=== PATIENT | female | born 1970 | race Caucasian/White ===

== ENCOUNTER → 2023-05-24 | Outpatient (CLI) | payer OTHER ==
[2023-05-24 15:51] LABS: BASO # 0.1 10^3/uL (0.0-0.2); BASO % 0.8 % (0.0-1.0); EOS # 0.4 10^3/uL (0.0-0.5); EOS % 2.9 % (0.0-3.0); HEMATOCRIT 43.1 % (36.0-47.0); HEMOGLOBIN 14.4 g/dl (12.0-15.5); LYMPH % 33.8 % (24.0-44.0); MEAN CORPUSCULAR HEMOGLOBIN 30.1 pg (27.0-33.0); MEAN CORPUSCULAR HGB CONC 33.4 g/dl (32.0-36.5); MONO % 8.5 % (2.0-8.0); NEUTROPHILS # 6.4 10^3/uL (1.5-8.5); NEUTROPHILS % 53.7 % (36.0-66.0); PLATELET COUNT, AUTOMATED 334 10^3/uL (150-450); RED BLOOD COUNT 4.79 10^6/uL (4.00-5.40); WHITE BLOOD COUNT 11.9 10^3/uL (4.0-10.0)
[2023-05-24 16:03] LABS: PROTHROMBIN TIME 13.4 SECONDS (12.5-14.5)
== END ==
LOC: M PLALAB 13:04
PROVIDERS: ATTEND Internal Medicine Critical Care Medicine
DX: R91.8 Other nonspecific abnormal finding of lung field (principal)

== ENCOUNTER → 2023-06-10 | Outpatient (CLI) | payer OTHER ==
[~2023-06-10] MED LIST: ALLE180T33 PO; ASPI81TA26 PO; BUPR300T92 PO; ESTETAB PO; GABA-282 PO; METF500T13 PO; METO25TA4 PO; NORE0.353 PO; OMEP40CA4 PO; TRAZ-252 PO
== END ==
LOC: M RAD 10:07
PROVIDERS: ATTEND Internal Medicine Critical Care Medicine
DX: R91.8 Other nonspecific abnormal finding of lung field (principal)

== ENCOUNTER 2023-06-15 07:08 | Day surgery (SDC) | payer OTHER ==
[~2023-06-15] VITALS: Ht 157.5 cm; Wt 78.0 kg
[~2023-06-15 07:08] MED LIST changes: +ALBUTEROL SULFATE 2.5MG/0.5ML INH NEB SOLN INH ONE; +LIDOCAINE PRES-FREE 2% 10ML AMP INH ONE
[2023-06-15] MEDS ORDERED: LR 1,000 ML IV SCH ×2 (07:20→12:15)
[2023-06-15] MEDS ORDERED: ONDANSETRON 4MG 2ML VIAL As Ordered ONE (08:58)
[2023-06-15] MEDS ORDERED: propofoL 200 MG/20 ML VIAL As Ordered ONE (08:58)
[2023-06-15] MEDS ORDERED: ROCURONIUM BROMIDE 50MG/5ML VIAL As Ordered ONE (08:58)
[2023-06-15] MEDS ORDERED: LIDOCAINE 2% 100MG/5ML SDV (FOR ANES.) As Ordered ONE (08:58)
[2023-06-15] MEDS ORDERED: MIDAZOLAM INJ 2MG/2ML VIAL As Ordered ONE (08:58)
[2023-06-15] MEDS ORDERED: fentaNYL 100 MCG/2 ML INJECTION As Ordered ONE (08:59)
[2023-06-15] MEDS ORDERED: CETACAINE SPRAY 5GM As Ordered ONE (09:42)
[2023-06-15] MEDS ORDERED: THROMBIN 5,000 UNITS VIAL As Ordered ONE (09:42)
[2023-06-15] MEDS ORDERED: EPINEPHrine 1MG/10ML SYRINGE 1.5IN As Ordered ONE (09:43)
[2023-06-15] MEDS ORDERED: SUGAMMADEX SODIUM 500 MG/5 ML VIAL (BRIDION) As Ordered ONE (11:07)
[2023-06-15] MEDS ORDERED: ACETAMINOPHEN 1000MG 100ML IV BAG As Ordered ONE (11:07)
[2023-06-15] MEDS ORDERED: ePHEDrine SULFATE 25 MG/5 ML(5MG/ML) SYRINGE As Ordered ONE (11:19)
[2023-06-15] MEDS ORDERED: fentaNYL 100 MCG/2 ML INJECTION IV PRN (12:15)
[2023-06-15] MEDS ORDERED: ONDANSETRON 4MG 2ML VIAL IV PRN (12:15)
[2023-06-15 14:00] VITALS: TEMP 98; O2SAT 95
[2023-06-15 14:30] VITALS: BP 115/74
[2023-06-28] MEDS ORDERED: ALBU8.5H INH (14:58)
== END 2023-06-15 14:37 | disposition home or self-care (01) ==
LOC: M SDC 07:08
PROVIDERS: ATTEND Internal Medicine Critical Care Medicine
DX: C77.1 Secondary and unspecified malignant neoplasm of intrathoracic lymph nodes (principal); J44.9 Chronic obstructive pulmonary disease, unspecified; J84.10 Pulmonary fibrosis, unspecified; F17.218 Nicotine dependence, cigarettes, with other nicotine-induced disorders; Z79.82 Long term (current) use of aspirin; Z79.890 Hormone replacement therapy; Z79.891 Long term (current) use of opiate analgesic; Z79.899 Other long term (current) drug therapy
CPT/HCPCS: 31627; 31628; 31654; 71045; 76000; 87070; 87102; 87116; 87205; 87206; 88173; 88305; 93005; J0131; J0171; J1100; J2250; J2405; J3010

== ENCOUNTER → 2023-07-05 | Outpatient (CLI) | payer OTHER ==
[~2023-07-05] MED LIST changes: +ALBU8.5H INH; -ALBUTEROL SULFATE 2.5MG/0.5ML INH NEB SOLN INH ONE; -LIDOCAINE PRES-FREE 2% 10ML AMP INH ONE
== END ==
LOC: M ONCR 10:52
PROVIDERS: ATTEND General Practice
DX: C34.11 Malignant neoplasm of upper lobe, right bronchus or lung (principal); R92.8 Other abnormal and inconclusive findings on diagnostic imaging of breast; Z71.2 Person consulting for explanation of examination or test findings; Z79.82 Long term (current) use of aspirin; Z79.84 Long term (current) use of oral hypoglycemic drugs; Z79.899 Other long term (current) drug therapy; Z80.3 Family history of malignant neoplasm of breast; Z87.891 Personal history of nicotine dependence

== ENCOUNTER 2023-07-18 08:05 | Observation (INO) | payer OTHER ==
[~2023-07-18] VITALS: Ht 160 cm; Wt 79.6 kg
[~2023-07-18 08:05] MED LIST changes: -ACET1TAB55 PO; -LIDO30CR18 TOP; -LIDOCAINE W/EPINEPHRINE 1% 20ML VIAL As Ordered ONE; +LIDOCAINE W/EPINEPHRINE 1% 20ML VIAL ONE; -METO1TAB87 PO; -MIDAZOLAM INJ 2MG/2ML VIAL As Ordered ONE; +MIDAZOLAM INJ 2MG/2ML VIAL ONE; -NS 1,000 ML IV SCH; -ONDA-84 PO; -PROC10TA5 PO; -ceFAZolin 2 GM/D5W 50 ML IV BAG As Ordered ONE; -ceFAZolin SOD 2 GM in IV 1 EA IV ONE; -fentaNYL 100 MCG/2 ML INJECTION As Ordered ONE; +fentaNYL 100 MCG/2 ML INJECTION ONE
[2023-07-18] MEDS ORDERED: ADENOSINE 6MG 2ML INJECTION IV STA ×2 (08:22)
[2023-07-18 09:20] LABS: BASO # 0.1 10^3/uL (0.0-0.2); BASO % 0.8 % (0.0-1.0); EOS # 0.4 10^3/uL (0.0-0.5); EOS % 3.9 % (0.0-3.0); HEMATOCRIT 42.2 % (36.0-47.0); LYMPH # 3.6 10^3/uL (1.5-5.0); LYMPH % 34.6 % (24.0-44.0); MEAN CORPUSCULAR HEMOGLOBIN 29.7 pg (27.0-33.0); MEAN CORPUSCULAR HGB CONC 33.2 g/dl (32.0-36.5); MEAN CORPUSCULAR VOLUME 89.4 fl (80.0-96.0); MONO # 0.7 10^3/uL (0.0-0.8); MONO % 6.4 % (2.0-8.0); NEUTROPHILS # 5.6 10^3/uL (1.5-8.5); NEUTROPHILS % 54.1 % (36.0-66.0); PLATELET COUNT, AUTOMATED 331 10^3/uL (150-450); RED BLOOD COUNT 4.72 10^6/uL (4.00-5.40); WHITE BLOOD COUNT 10.4 10^3/uL (4.0-10.0)
[2023-07-18 09:21] LABS: BLOOD UREA NITROGEN 18 MG/DL (9-23); CALCIUM LEVEL 8.9 MG/DL (8.5-10.1); CARBON DIOXIDE LEVEL 22 MMOL/L (20-31); CHLORIDE LEVEL 106 MMOL/L (98-107); CREATININE FOR GFR 0.75 MG/DL (0.55-1.30); GLOMERULAR FILTRATION RATE > 60.0 (>51); GLUCOSE, FASTING 111 MG/DL (60-100); MAGNESIUM LEVEL 1.3 MG/DL (1.8-2.4); SODIUM LEVEL 136 MMOL/L (136-145)
[2023-07-18 09:23] LABS: THYROID STIMULATING HORMONE 1.888 uIU/ML (0.55-4.78)
[2023-07-18] MEDS ORDERED: MAG SULF 1GM/100ML (MAG RUN) 1 GM in IV 1 EA IV ONE ×3 (09:50→15:00)
[2023-07-18] MEDS ORDERED: MOM 30ML SUSPENSION UDC PO PRN (11:50)
[2023-07-18] MEDS ORDERED: MED REC IN PROGRESS XX SCH (11:50)
[2023-07-18] MEDS ORDERED: ACET1TAB55 PO (12:47)
[2023-07-18] MEDS ORDERED: HOME MED LIST COMPLETE! XX SCH (12:50)
[2023-07-18] MEDS ORDERED: MAG SULF 1GM/100ML (MAG RUN) 1 GM in IV 1 EA IV SCH ×2 (13:00→13:50)
[2023-07-18] MEDS ORDERED: LR 1,000 ML IV ONE (15:15)
[2023-07-18] MEDS ORDERED: PROHANCE 279.3MG/ML 15ML VIAL As Ordered ONE (15:59)
[2023-07-18 16:49] VITALS: BP 101/67; TEMP 97.7; O2SAT 97
[2023-07-18 17:47] VITALS: BP 101/71
[2023-07-18 19:47] VITALS: BP 99/62; TEMP 97.4; O2SAT 96
[2023-07-18] MEDS ORDERED: ACETAMINOPHEN TAB 650MG DOSE (2X325MG) PO PRN (20:10)
[2023-07-18] MEDS ORDERED: ALBUTEROL 90 MCG/ACT 8GM HFA INHALER INH PRN (20:10)
[2023-07-18] MEDS ORDERED: FEXOFENADINE 60MG TAB PO PRN (20:10)
[2023-07-18] MEDS: GABAPENTIN 300 MG CAP PO SCH (20:16)
[2023-07-18] MEDS: ACETAMINOPHEN TAB 650MG DOSE (2X325MG) PO PRN (20:17)
[2023-07-18] MEDS: METOPROLOL TART 25 MG TABLET PO SCH (21:00)
[2023-07-18] MEDS ORDERED: traZODone 50 MG TAB PO SCH (21:00)
[2023-07-18 23:45] VITALS: BP 97/62; TEMP 96.9; O2SAT 95
[2023-07-19 03:28] VITALS: BP 110/76; TEMP 97.8; O2SAT 100
[2023-07-19 06:33] LABS: HEMATOCRIT 40.1 % (36.0-47.0); HEMOGLOBIN 12.8 g/dl (12.0-15.5); MEAN CORPUSCULAR HEMOGLOBIN 29.2 pg (27.0-33.0); MEAN CORPUSCULAR HGB CONC 31.9 g/dl (32.0-36.5); MEAN CORPUSCULAR VOLUME 91.3 fl (80.0-96.0); PLATELET COUNT, AUTOMATED 284 10^3/uL (150-450); RED BLOOD COUNT 4.39 10^6/uL (4.00-5.40); WHITE BLOOD COUNT 7.9 10^3/uL (4.0-10.0)
[2023-07-19 07:06] LABS: BLOOD UREA NITROGEN 13 MG/DL (9-23); CALCIUM LEVEL 8.4 MG/DL (8.5-10.1); CARBON DIOXIDE LEVEL 27 MMOL/L (20-31); CHLORIDE LEVEL 106 MMOL/L (98-107); CREATININE FOR GFR 0.69 MG/DL (0.55-1.30); GLOMERULAR FILTRATION RATE > 60.0 (>51); GLUCOSE, FASTING 101 MG/DL (60-100); POTASSIUM SERUM 4.2 MMOL/L (3.5-5.1); SODIUM LEVEL 141 MMOL/L (136-145)
[2023-07-19] MEDS: ACETAMINOPHEN TAB 650MG DOSE (2X325MG) PO PRN (07:29)
[2023-07-19 08:00] VITALS: BP 111/78; TEMP 97.8; O2SAT 94
[2023-07-19] MEDS: buPROPion **XL** TABLET 150MG (WELLBUTRIN XL) PO SCH ×2 (08:50→09:57)
[2023-07-19] MEDS: OMEPRAZOLE 20MG CAP PO SCH ×2 (08:50→09:59)
[2023-07-19] MEDS: ASPIRIN 81MG ENTERIC TABLET PO SCH ×2 (08:51→09:58)
[2023-07-19] MEDS: GABAPENTIN 300 MG CAP PO SCH ×2 (08:51→09:59)
[2023-07-19] MEDS: METOPROLOL TART 25 MG TABLET PO SCH ×2 (08:51→10:01)
[2023-07-19] MEDS: FAMOTIDINE 20 MG TAB PO SCH ×2 (08:51→09:58)
[2023-07-19 10:01] VITALS: BP 112/75
[2023-07-19 10:02] VITALS: BP 112/75
[2023-07-19] MEDS ORDERED: ceFAZolin SOD 2 GM in IV 1 EA IV ONE (11:30)
[2023-07-19] MEDS ORDERED: MIDAZOLAM INJ 2MG/2ML VIAL ONE (11:38)
[2023-07-19] MEDS ORDERED: LIDOCAINE W/EPINEPHRINE 1% 20ML VIAL ONE (11:38)
[2023-07-19] MEDS ORDERED: fentaNYL 100 MCG/2 ML INJECTION ONE (11:39)
[2023-07-19] MEDS ORDERED: ceFAZolin 2 GM/D5W 50 ML IV BAG ONE (11:39)
[2023-07-19] MEDS ORDERED: METO1TAB87 PO (12:17)
[2023-07-19 13:30] VITALS: BP 126/76; TEMP 97.4; O2SAT 96
[2023-07-19 16:00] VITALS: BP 128/84; TEMP 97.8; O2SAT 97
[2023-07-26] MEDS ORDERED: PROC10TA5 PO (13:27)
[2023-07-26] MEDS ORDERED: ONDA-84 PO (13:27)
[2023-07-26] MEDS ORDERED: LIDO30CR18 TOP (13:49)
== END 2023-07-19 16:53 | disposition home or self-care (01) ==
LOC: M ED 08:05 → M ED INP 08:06 → ENRESERV 15:50 → M PCU 16:40
PROVIDERS: ADMIT Student in an Organized Health Care Education/Training Program; ATTEND Student in an Organized Health Care Education/Training Program
DX: I47.20 Ventricular tachycardia, unspecified (principal); E83.42 Hypomagnesemia; C34.11 Malignant neoplasm of upper lobe, right bronchus or lung; J84.9 Interstitial pulmonary disease, unspecified; E28.2 Polycystic ovarian syndrome; K21.9 Gastro-esophageal reflux disease without esophagitis; G47.00 Insomnia, unspecified; G62.9 Polyneuropathy, unspecified; J30.1 Allergic rhinitis due to pollen; F32.A Depression, unspecified; F17.210 Nicotine dependence, cigarettes, uncomplicated; Z79.899 Other long term (current) drug therapy; Z79.890 Hormone replacement therapy; Z79.82 Long term (current) use of aspirin; Z79.84 Long term (current) use of oral hypoglycemic drugs; Z82.49 Family history of ischemic heart disease and other diseases of the circulatory system
CPT/HCPCS: 36415; 36561; 70553; 71045; 80048; 83605; 83735; 84443; 85025; 85027; 87635; 93005; 93306; 96365; 96366; 96375; 99152; 99153; 99285; A9576; J0153; J0690; J2250; J3010; J3475

== ENCOUNTER → 2023-07-18 | Outpatient (CLI) | payer OTHER ==
[~2023-07-18] VITALS: Ht 160 cm; Wt 78.2 kg
[~2023-07-18] MED LIST changes: +ACET1TAB55 PO; +LIDO30CR18 TOP; +LIDOCAINE W/EPINEPHRINE 1% 20ML VIAL As Ordered ONE; +METO1TAB87 PO; +MIDAZOLAM INJ 2MG/2ML VIAL As Ordered ONE; +NS 1,000 ML IV SCH; +ONDA-84 PO; +PROC10TA5 PO; +ceFAZolin 2 GM/D5W 50 ML IV BAG As Ordered ONE; +ceFAZolin SOD 2 GM in IV 1 EA IV ONE; +fentaNYL 100 MCG/2 ML INJECTION As Ordered ONE
[2023-07-18 07:55] VITALS: BP 91/50; TEMP 98.3; O2SAT 99
== END ==
LOC: M IRPRO 06:49
PROVIDERS: ATTEND Internal Medicine Medical Oncology
DX: C34.11 Malignant neoplasm of upper lobe, right bronchus or lung (principal); E83.42 Hypomagnesemia; I47.29 Other ventricular tachycardia

== ENCOUNTER → 2023-07-26 | Outpatient (REF) | payer OTHER ==
[~2023-07-26] MED LIST changes: +ACET1TAB55 PO; +LIDO30CR18 TOP; -LIDOCAINE W/EPINEPHRINE 1% 20ML VIAL ONE; +METO1TAB87 PO; -MIDAZOLAM INJ 2MG/2ML VIAL ONE; +ONDA-84 PO; +PROC10TA5 PO; -fentaNYL 100 MCG/2 ML INJECTION ONE
== END ==
LOC: M LAB REF 08:41
PROVIDERS: ATTEND Nurse Practitioner Family
DX: E83.42 Hypomagnesemia (principal)

== ENCOUNTER 2023-08-23 14:53 | Emergency (ER) | payer OTHER ==
[~2023-08-23] VITALS: Ht 160 cm; Wt 80.4 kg
[~2023-08-23 14:53] MED LIST changes: +MAGICMW PO; +SENO8.6T5 PO
[2023-08-23] MEDS ORDERED: ADENOSINE 6MG 2ML INJECTION As Ordered ONE (15:10)
[2023-08-23] MEDS ORDERED: ADENOSINE 6MG 2ML INJECTION IV STA (15:17)
[2023-08-23] MEDS ORDERED: MAG SULF 1GM/100ML (MAG RUN) 1 GM in IV 1 EA IV ONE ×2 (15:25→15:50)
[2023-08-23] MEDS ORDERED: NS 1,000 ML IV ONE (16:40)
[2023-08-23 17:40] VITALS: BP 99/73; TEMP 97.8; O2SAT 96
== END 2023-08-23 17:58 | disposition home or self-care (01) ==
LOC: M ED 14:53
DX: I47.10 Supraventricular tachycardia, unspecified (principal); C34.90 Malignant neoplasm of unspecified part of unspecified bronchus or lung; Z92.21 Personal history of antineoplastic chemotherapy; Z92.3 Personal history of irradiation; Z87.891 Personal history of nicotine dependence; Z79.82 Long term (current) use of aspirin; Z79.899 Other long term (current) drug therapy
CPT/HCPCS: 93005; 96365; 96366; 96375; 99284; J0153; J3475

== ENCOUNTER → 2023-09-06 | Outpatient (RCR) | payer OTHER ==
[~2023-09-06] MED LIST changes: +CLAR10CA3 PO
== END ==
LOC: M ONCR 08-08 13:24
PROVIDERS: ATTEND General Practice
DX: Z51.0 Encounter for antineoplastic radiation therapy (principal); C34.11 Malignant neoplasm of upper lobe, right bronchus or lung

== ENCOUNTER 2023-09-09 13:28 | Outpatient (RCR) | payer OTHER ==
[2023-09-11] MEDS ORDERED: OMEP40CA5 PO (07:44)
[2023-09-11] MEDS ORDERED: GERISUS (07:44)
[2023-09-11] MEDS ORDERED: GERI8.6T PO (07:44)
[2023-09-11] MEDS ORDERED: ESTETAB PO (08:45)
[2023-09-11] MEDS ORDERED: DIGO0.253 PO (11:36)
[2023-09-28] MEDS ORDERED: METO1TAB87 PO (09:06)
[2023-09-28] MEDS ORDERED: MAGN400T2 PO (09:49)
== END 2023-10-06 ==
LOC: M ONCR 13:28
PROVIDERS: ATTEND General Practice
DX: Z51.0 Encounter for antineoplastic radiation therapy (principal); C34.11 Malignant neoplasm of upper lobe, right bronchus or lung

== ENCOUNTER 2023-09-11 07:27 | Emergency (ER) | payer OTHER ==
[~2023-09-11] VITALS: Ht 160 cm; Wt 81.3 kg
[2023-09-11] MEDS ORDERED: ADENOSINE 6MG 2ML INJECTION IV STA ×3 (07:43)
[2023-09-11] MEDS ORDERED: GERISUS (07:44)
[2023-09-11] MEDS ORDERED: OMEP40CA5 (07:44)
[2023-09-11] MEDS ORDERED: GERI8.6T (07:44)
[2023-09-11 08:04] LABS: HEMATOCRIT 30.9 % (36.0-47.0); HEMOGLOBIN 10.3 g/dl (12.0-15.5); MEAN CORPUSCULAR HEMOGLOBIN 31.4 pg (27.0-33.0); MEAN CORPUSCULAR HGB CONC 33.3 g/dl (32.0-36.5); MEAN CORPUSCULAR VOLUME 94.2 fl (80.0-96.0); PLATELET COUNT, AUTOMATED 217 10^3/uL (150-450); RED BLOOD COUNT 3.28 10^6/uL (4.00-5.40); WHITE BLOOD COUNT 8.8 10^3/uL (4.0-10.0)
[2023-09-11 08:15] LABS: INR 1.12; PROTHROMBIN TIME 14.1 SECONDS (12.5-14.5)
[2023-09-11 08:16] LABS: PARTIAL THROMBOPLASTIN TIME 46.2 SECONDS (24.8-34.2)
[2023-09-11 08:29] LABS: ATYPICAL LYMPH 2 % (0-5); BASOPHILS 1 % (0-1); EOSINOPHILS 1 % (0-3); LYMPHOCYTES 12 % (16-44); METAMYELOCYTES 4 % (0-0); MONOCYTES 18 % (0-5); MYELOCYTES 4 % (0-0); NEUTROPHILS 44 % (28-66)
[2023-09-11 08:30] LABS: PLATELET CLUMPS SMALL AMT; PLATELET ESTIMATE NORMAL (NORMAL)
[2023-09-11 08:31] LABS: ANISOCYTOSIS 1+; POLYCHROMASIA 1+
[2023-09-11 08:35] LABS: RSV AMPLIFICATION NEGATIVE (NEGATIVE)
[2023-09-11 08:42] LABS: LIPASE 25 U/L (12-53)
[2023-09-11 08:43] LABS: CPK CREATINE PHOSPHOKINASE 40 U/L (34-145)
[2023-09-11 08:44] LABS: ALBUMIN 3.4 G/DL (3.2-5.2); ALKALINE PHOSPHATASE 73 U/L (46-116); ALT/SGPT 17 U/L (7.0-40); AST/SGOT 15 U/L (<34); BILIRUBIN,DIRECT < 0.1 MG/DL (<0.4); BILIRUBIN,TOTAL 0.2 MG/DL (0.3-1.2); BLOOD UREA NITROGEN 14 MG/DL (9-23); CARBON DIOXIDE LEVEL 25 MMOL/L (20-31); CHLORIDE LEVEL 106 MMOL/L (98-107); CK-MB VALUE MASS < 1.0 NG/ML (<3.6); CREATININE FOR GFR 0.71 MG/DL (0.55-1.30); GLOMERULAR FILTRATION RATE > 60.0 (>51); GLUCOSE, FASTING 102 MG/DL (60-100); MAGNESIUM LEVEL 1.6 MG/DL (1.8-2.4); POTASSIUM SERUM 3.8 MMOL/L (3.5-5.1); SODIUM LEVEL 141 MMOL/L (136-145); TOTAL PROTEIN 6.4 G/DL (5.7-8.2)
[2023-09-11 08:45] LABS: THYROID STIMULATING HORMONE 2.067 uIU/ML (0.55-4.78)
[2023-09-11] MEDS ORDERED: ESTETAB PO (08:45)
[2023-09-11] MEDS ORDERED: NS 1,000 ML IV ONE (08:45)
[2023-09-11 08:46] LABS: FREE T4 0.77 NG/DL (0.89-1.76)
[2023-09-11] MEDS ORDERED: SODIUM CHLORIDE 0.9% INJ 10 ML SYR IV PRN (09:00)
[2023-09-11] MEDS ORDERED: MAG SULF 1GM/100ML (MAG RUN) 1 GM in IV 1 EA IV ONE (09:00)
[2023-09-11 09:58] LABS: CK-MB VALUE MASS < 1.0 NG/ML (<3.6)
[2023-09-11 09:59] LABS: CPK CREATINE PHOSPHOKINASE 34 U/L (34-145); MB/CK RELATIVE INDEX 2.94 (< OR =4)
[2023-09-11] MEDS ORDERED: DIGOXIN INJ 0.5 MG/2 ML AMP IV ONE (11:15)
[2023-09-11] MEDS ORDERED: DIGO0.253 PO (11:36)
[2023-09-11 12:42] VITALS: BP 108/69; TEMP 97.5; O2SAT 99
== END 2023-09-11 12:59 | disposition home or self-care (01) ==
LOC: M ED 07:27
DX: I47.19 Other supraventricular tachycardia (principal); Z85.118 Personal history of other malignant neoplasm of bronchus and lung; Z92.21 Personal history of antineoplastic chemotherapy; Z92.3 Personal history of irradiation; Z87.891 Personal history of nicotine dependence; Z79.82 Long term (current) use of aspirin; Z79.84 Long term (current) use of oral hypoglycemic drugs; Z79.899 Other long term (current) drug therapy
CPT/HCPCS: 71045; 80048; 80076; 82550; 82553; 83690; 83735; 83880; 84439; 84443; 84484; 85025; 85610; 85730; 87631; 93005; 93041; 94760; 96365; 96375; 99285; J0153; J1160; J3475

== ENCOUNTER → 2023-10-28 | Outpatient (CLI) | payer OTHER ==
[~2023-10-28] MED LIST changes: +DIGO0.253 PO; +GERI8.6T PO; +GERISUS; +MAGN400T2 PO; +OMEP40CA5 PO
== END ==
LOC: M RAD 08:58
PROVIDERS: ATTEND Internal Medicine Hematology & Oncology
DX: R74.01 Elevation of levels of liver transaminase levels (principal)

== ENCOUNTER → 2023-12-09 | Outpatient (CLI) | payer OTHER ==
[~2023-12-09] MED LIST changes: +FAMO40TA3 PO; +GASTROGRAFIN SOLUTION 30ML As Ordered ONE; +ISOVUE-370 76% 100ML VIAL As Ordered ONE; +METF-838 PO
== END ==
LOC: M RAD 11:26
PROVIDERS: ATTEND Internal Medicine Medical Oncology
DX: C34.90 Malignant neoplasm of unspecified part of unspecified bronchus or lung (principal)

== ENCOUNTER → 2024-03-02 | Outpatient (REF) | payer OTHER ==
[~2024-03-02] MED LIST changes: -GASTROGRAFIN SOLUTION 30ML As Ordered ONE; -GERI8.6T PO; -ISOVUE-370 76% 100ML VIAL As Ordered ONE; +POTA1TAB23 PO; +PRED20TA; +PRED50TA PO; +SENN-193 PO
[2024-03-02 11:48] LABS: CHOLESTEROL RISK RATIO 5.87 (<5); HDL CHOLESTEROL 37.3 MG/DL (>40); LDL CHOLESTEROL 154.3 MG/DL (<100); NON-HDL-C 181.7 MG/DL
[2024-03-02 12:35] LABS: HEMOGLOBIN A1c 5.6 % (4.0-6.0)
== END ==
LOC: M LAB REF 10:23
PROVIDERS: ATTEND Nurse Practitioner Family
DX: E28.2 Polycystic ovarian syndrome (principal); E78.00 Pure hypercholesterolemia, unspecified

== ENCOUNTER → 2024-03-02 | Outpatient (REF) | payer OTHER ==
[~2024-03-02] MED LIST changes: +BUPR-597 PO; -BUPR300T92 PO
[2024-03-02 11:56] LABS: C REACTIVE PROTEIN QUANTITATIV 3.2 MG/DL (<1.0)
[2024-03-02 11:57] LABS: RHEUMATOID FACTOR QUANT 4.3 IU/ML (<14)
[2024-03-08 13:18] LABS: ANCA-ATYPICAL <1:20 titer (Neg:<1:20); ANGIOTENSIN 1 CONVERTING ENZYM 26 U/L (14-82); ANTINUCLEAR ANTIBODIES DIRECT Negative (Negative); ASPERGILLUS FUMIGATUS AB Negative (Negative); ASPERGILLUS GALACTOMANNAN AG 0.05 Index (0.00-0.49); AUREOBASIDIUM PULLULANS Negative (Negative); CYCLIC CITRULLINATED PEPTIDE 9 units (0-19); CYTOPLASMIC NEUTROP AB ANCA-C <1:20 titer (Neg:<1:20); MICROPOLYSPORA FAENI AB Negative (Negative); PERINUCLEAR AB ANCA-P <1:20 titer (Neg:<1:20); PIGEON SERUM AB Negative (Negative); SJOGREN'S ANTI SS-A <0.2 AI (0.0-0.9); SJOGREN'S ANTI SS-B <0.2 AI (0.0-0.9); THERMOACTINOMYCES SACCHARI Negative (Negative); THERMOACTINOMYCES VULGARIS Negative (Negative)
== END ==
LOC: M LAB REF 10:26
PROVIDERS: ATTEND Internal Medicine Critical Care Medicine
DX: J84.10 Pulmonary fibrosis, unspecified (principal)

== ENCOUNTER → 2024-03-07 | Outpatient (CLI) | payer OTHER ==
[~2024-03-07] MED LIST changes: +GASTROGRAFIN SOLUTION 30ML As Ordered ONE; +ISOVUE-370 76% 100ML VIAL As Ordered ONE
== END ==
LOC: M RAD 08:50
PROVIDERS: ATTEND Internal Medicine Medical Oncology
DX: C34.90 Malignant neoplasm of unspecified part of unspecified bronchus or lung (principal)
CPT/HCPCS: 71260; 74177; Q9963; Q9967

== ENCOUNTER → 2024-03-13 | Outpatient (CLI) | payer OTHER ==
[~2024-03-13] MED LIST changes: -GASTROGRAFIN SOLUTION 30ML As Ordered ONE; -ISOVUE-370 76% 100ML VIAL As Ordered ONE
== END ==
LOC: M ONCR 14:13
PROVIDERS: ATTEND General Practice
DX: C34.11 Malignant neoplasm of upper lobe, right bronchus or lung (principal); R05.8 Other specified cough; J84.10 Pulmonary fibrosis, unspecified; R06.00 Dyspnea, unspecified; Z71.2 Person consulting for explanation of examination or test findings; Z87.891 Personal history of nicotine dependence; Z79.620 Long term (current) use of immunosuppressive biologic; Z79.84 Long term (current) use of oral hypoglycemic drugs; Z79.82 Long term (current) use of aspirin; Z79.899 Other long term (current) drug therapy; Z92.21 Personal history of antineoplastic chemotherapy; Z92.3 Personal history of irradiation

== ENCOUNTER → 2024-09-17 | Outpatient (CLI) | payer OTHER ==
[~2024-09-17] MED LIST changes: +BUDE0.5S6 INH; +GABA-1172 PO; -GABA-282 PO; +GASTROGRAFIN SOLUTION 30ML ONE; +ISOVUE-370 76% 100ML VIAL ONE
== END ==
LOC: M PLAIMG 09:22
PROVIDERS: ATTEND Dietitian, Registered
DX: C34.90 Malignant neoplasm of unspecified part of unspecified bronchus or lung (principal)
CPT/HCPCS: 71260; 74177; Q9963; Q9967

== ENCOUNTER → 2024-09-20 | Outpatient (REF) | payer OTHER ==
[~2024-09-20] MED LIST changes: +BIOT5TAB3 PO; -GASTROGRAFIN SOLUTION 30ML ONE; -ISOVUE-370 76% 100ML VIAL ONE
[2024-09-20 13:04] LABS: HEMOGLOBIN A1c 5.5 % (4.0-6.0)
[2024-09-20 13:12] LABS: ALBUMIN 3.7 G/DL (3.2-5.2); ALKALINE PHOSPHATASE 67 U/L (35-104); ALT/SGPT 17 U/L (7.0-40); AST/SGOT 13 U/L (<34); BILIRUBIN,TOTAL 0.3 MG/DL (0.3-1.2); BLOOD UREA NITROGEN 11 MG/DL (9-23); CARBON DIOXIDE LEVEL 27 MMOL/L (20-31); CHLORIDE LEVEL 105 MMOL/L (98-107); CHOLESTEROL LEVEL 199 MG/DL (<200); CHOLESTEROL RISK RATIO 5.05 (<5); CREATININE FOR GFR 0.78 MG/DL (0.55-1.30); GLOMERULAR FILTRATION RATE > 60.0 (>51); GLUCOSE, FASTING 76 MG/DL (60-100); HDL CHOLESTEROL 39.4 MG/DL (>40); LDL CHOLESTEROL 138.8 MG/DL (<100); MAGNESIUM LEVEL 1.9 MG/DL (1.8-2.4); NON-HDL-C 159.6 MG/DL; POTASSIUM SERUM 4.1 MMOL/L (3.5-5.1); SODIUM LEVEL 139 MMOL/L (136-145); TOTAL PROTEIN 7.1 G/DL (5.7-8.2); TRIGLYCERIDES LEVEL 104 MG/DL (<150)
== END ==
LOC: M LAB REF 11:39
PROVIDERS: ATTEND Nurse Practitioner Family
DX: E78.00 Pure hypercholesterolemia, unspecified (principal); E28.2 Polycystic ovarian syndrome; E83.42 Hypomagnesemia

== ENCOUNTER → 2024-09-27 | Outpatient (CLI) | payer OTHER | LOC: M ONCR 09:14 | PROVIDERS: ATTEND General Practice | DX: C34.11 Malignant neoplasm of upper lobe, right bronchus or lung (principal); J84.10 Pulmonary fibrosis, unspecified; Z79.620 Long term (current) use of immunosuppressive biologic; Z79.82 Long term (current) use of aspirin; Z79.84 Long term (current) use of oral hypoglycemic drugs; Z79.890 Hormone replacement therapy; Z79.899 Other long term (current) drug therapy; Z87.891 Personal history of nicotine dependence; Z92.21 Personal history of antineoplastic chemotherapy; Z92.3 Personal history of irradiation ==

== ENCOUNTER → 2024-11-09 | Outpatient (CLI) | payer OTHER ==
[~2024-11-09] MED LIST changes: +ISOVUE-370 76% 100ML VIAL As Ordered ONE
== END ==
LOC: M RAD 09:16
PROVIDERS: ATTEND Internal Medicine Medical Oncology
DX: C34.11 Malignant neoplasm of upper lobe, right bronchus or lung (principal); J98.59 Other diseases of mediastinum, not elsewhere classified; R91.8 Other nonspecific abnormal finding of lung field; R91.1 Solitary pulmonary nodule
CPT/HCPCS: 71260; 74177; Q9967

== ENCOUNTER → 2024-11-15 | Outpatient (REF) | payer OTHER ==
[~2024-11-15] MED LIST changes: -ISOVUE-370 76% 100ML VIAL As Ordered ONE
== END ==
LOC: M LAB REF 15:03
PROVIDERS: ATTEND Internal Medicine Pulmonary Disease
DX: R50.9 Fever, unspecified (principal)

== ENCOUNTER → 2024-11-29 | Outpatient (CLI) | payer OTHER ==
[~2024-11-29] MED LIST changes: +MAGN400T33 PO; +PERC5TAB12 PO; +SENN-186 PO; +VENTAER INH
== END ==
LOC: M ONCR 09:04
PROVIDERS: ATTEND General Practice
DX: C34.11 Malignant neoplasm of upper lobe, right bronchus or lung (principal); C77.1 Secondary and unspecified malignant neoplasm of intrathoracic lymph nodes; J84.10 Pulmonary fibrosis, unspecified; Z87.891 Personal history of nicotine dependence; Z92.21 Personal history of antineoplastic chemotherapy; Z92.3 Personal history of irradiation; Z79.620 Long term (current) use of immunosuppressive biologic; Z79.84 Long term (current) use of oral hypoglycemic drugs; Z79.899 Other long term (current) drug therapy

== ENCOUNTER 2024-11-30 04:50 | Inpatient (IN) | payer OTHER ==
[~2024-11-30] VITALS: Ht 165.1 cm; Wt 79.6 kg
[~2024-11-30 04:50] MED LIST changes: -MAGN400T33 PO; -SENN-186 PO; -VENTAER INH
[2024-11-30] MEDS: PERCOCET 5MG/325MG TAB PO ONE (05:52)
[2024-11-30] MEDS: KETOROLAC 60MG 2ML VIAL IM ONE (05:53)
[2024-11-30] MEDS ORDERED: ISOVUE-370 76% 100ML VIAL As Ordered ONE (08:03)
[2024-11-30] MEDS: ONDANSETRON 4MG 2ML VIAL IV ONE (08:40)
[2024-11-30] MEDS: fentaNYL 100 MCG/2 ML INJECTION IV ONE (08:40)
[2024-11-30 10:42] LABS: BASO % 0.5 % (0.0-1.0); EOS # 0.3 10^3/uL (0.0-0.5); EOS % 3.4 % (0.0-3.0); HEMATOCRIT 40.7 % (36.0-47.0); HEMOGLOBIN 13.2 g/dl (12.0-15.5); LYMPH # 1.4 10^3/uL (1.5-5.0); LYMPH % 17.5 % (24.0-44.0); MEAN CORPUSCULAR HEMOGLOBIN 28.3 pg (27.0-33.0); MEAN CORPUSCULAR HGB CONC 32.4 g/dl (32.0-36.5); MEAN CORPUSCULAR VOLUME 87.2 fl (80.0-96.0); MONO # 0.8 10^3/uL (0.0-0.8); MONO % 10.4 % (2.0-8.0); NEUTROPHILS # 5.5 10^3/uL (1.5-8.5); NEUTROPHILS % 68.1 % (36.0-66.0); PLATELET COUNT, AUTOMATED 338 10^3/uL (150-450); RED BLOOD COUNT 4.67 10^6/uL (4.00-5.40); WHITE BLOOD COUNT 8.1 10^3/uL (4.0-10.0)
[2024-11-30] MEDS: IPRATROPIUM 0.5MG/ALBUTEROL 2.5MG INH SOL UD 3ML (DUONEB) NEB ONE (10:53)
[2024-11-30 11:02] LABS: BLOOD UREA NITROGEN 12 MG/DL (9-23); CALCIUM LEVEL 8.7 MG/DL (8.5-10.1); CARBON DIOXIDE LEVEL 27 MMOL/L (20-31); CHLORIDE LEVEL 108 MMOL/L (98-107); CREATININE FOR GFR 0.65 MG/DL (0.55-1.30); GLOMERULAR FILTRATION RATE > 60.0 (>51); GLUCOSE, FASTING 84 MG/DL (60-100); POTASSIUM SERUM 4.2 MMOL/L (3.5-5.1); SODIUM LEVEL 141 MMOL/L (136-145)
[2024-11-30] MEDS: KETOROLAC 30 MG/ML 1ML VIAL IV ONE (11:03)
[2024-11-30] MEDS: PIPERACILLIN/TAZOBACTAM SOD 4.5 GM in DEXTROSE 5% (D5W) ADV/MINI-BAG 50 ML IV ONE (13:16)
[2024-11-30] MEDS: MORPHINE 2 MG/ML 1ML VIAL IV ONE (13:16)
[2024-11-30] MEDS ORDERED: DIGO0.253 PO (13:48)
[2024-11-30] MEDS ORDERED: SENN-186 PO (13:48)
[2024-11-30] MEDS ORDERED: MAGN400T33 PO (13:48)
[2024-11-30] MEDS ORDERED: VENTAER INH (13:48)
[2024-11-30] MEDS ORDERED: HOME MED LIST COMPLETE! XX SCH (13:50)
[2024-11-30] MEDS ORDERED: ALBUTEROL 90 MCG/ACT 8GM HFA INHALER INH PRN (14:40)
[2024-11-30] MEDS: DIGOXIN 0.25 MG TAB PO SCH (15:20)
[2024-11-30] MEDS: buPROPion **XL** TABLET 150MG (WELLBUTRIN XL) PO SCH (15:21)
[2024-11-30] MEDS: ASPIRIN 81MG ENTERIC TABLET PO SCH (15:21)
[2024-11-30] MEDS: PERCOCET 5MG/325MG TAB PO SCH (15:21)
[2024-11-30] MEDS: LIDOCAINE 5% (LIDODERM) PATCH TD SCH (15:22)
[2024-11-30] MEDS: FAMOTIDINE 20 MG TAB PO SCH (15:23)
[2024-11-30] MEDS: MORPHINE 2 MG/ML 1ML VIAL IV PRN (15:27)
[2024-11-30 16:02] VITALS: BP 120/69; TEMP 97.9; O2SAT 97
[2024-11-30] MEDS: BUDESONIDE 0.5 MG/2 ML INHALATION SUSPENSION INH SCH (19:13)
[2024-11-30 20:00] VITALS: BP 102/60; TEMP 97.6; O2SAT 94
[2024-11-30] MEDS: PIPERACILLIN/TAZOBACTAM SOD 4.5 GM in DEXTROSE 5% (D5W) ADV/MINI-BAG 50 ML IV SCH (20:43)
[2024-11-30] MEDS: GABAPENTIN 300 MG CAP PO SCH (20:44)
[2024-11-30] MEDS: MAGNESIUM OXIDE 400MG TAB (MAG-OX) PO SCH (20:45)
[2024-11-30] MEDS: traZODone 100 MG TAB PO SCH (20:46)
[2024-11-30] MEDS: METOPROLOL TART 12.5 MG PER 1/2 TAB PO SCH (20:46)
[2024-11-30 23:57] VITALS: O2SAT 94
[2024-12-01] VITALS (7 sets, daily range): BP systolic 122–151; BP diastolic 77–93; TEMP 97.6–98.2; O2SAT 91–97
[2024-12-01 06:29] LABS: HEMOGLOBIN 13.4 g/dl (12.0-15.5); MEAN CORPUSCULAR HEMOGLOBIN 27.9 pg (27.0-33.0); MEAN CORPUSCULAR HGB CONC 31.9 g/dl (32.0-36.5); MEAN CORPUSCULAR VOLUME 87.3 fl (80.0-96.0); PLATELET COUNT, AUTOMATED 334 10^3/uL (150-450); RED BLOOD COUNT 4.81 10^6/uL (4.00-5.40); WHITE BLOOD COUNT 8.5 10^3/uL (4.0-10.0)
[2024-12-01 06:55] LABS: BLOOD UREA NITROGEN 15 MG/DL (9-23); CALCIUM LEVEL 8.8 MG/DL (8.5-10.1); CARBON DIOXIDE LEVEL 27 MMOL/L (20-31); CHLORIDE LEVEL 105 MMOL/L (98-107); CREATININE FOR GFR 0.72 MG/DL (0.55-1.30); GLOMERULAR FILTRATION RATE > 60.0 (>51); GLUCOSE, FASTING 154 MG/DL (60-100); POTASSIUM SERUM 4.2 MMOL/L (3.5-5.1); SODIUM LEVEL 139 MMOL/L (136-145)
[2024-12-01] MEDS: SENNA 8.6 MG TAB (SENOKOT) PO PRN (08:21)
[2024-12-01] MEDS: MIRALAX *UNIT DOSE* 17GM PACKET PO PRN (12:08)
[2024-12-01] MEDS: oxyCODONE 5MG TAB PO SCH (12:09)
[2024-12-01] MEDS: ACETAMINOPHEN 500 MG TAB PO SCH (13:22)
[2024-12-01] MEDS ORDERED: PROHANCE 279.3MG/ML 15ML VIAL As Ordered ONE (17:55)
[2024-12-02] VITALS (7 sets, daily range): BP systolic 111–151; BP diastolic 80–97; TEMP 97.5–98.8; O2SAT 94–99
[2024-12-02 06:44] LABS: HEMATOCRIT 41.6 % (36.0-47.0); HEMOGLOBIN 13.4 g/dl (12.0-15.5); MEAN CORPUSCULAR HEMOGLOBIN 27.8 pg (27.0-33.0); MEAN CORPUSCULAR HGB CONC 32.2 g/dl (32.0-36.5); MEAN CORPUSCULAR VOLUME 86.3 fl (80.0-96.0); PLATELET COUNT, AUTOMATED 373 10^3/uL (150-450); RED BLOOD COUNT 4.82 10^6/uL (4.00-5.40); WHITE BLOOD COUNT 9.6 10^3/uL (4.0-10.0)
[2024-12-02 07:19] LABS: BLOOD UREA NITROGEN 13 MG/DL (9-23); CALCIUM LEVEL 8.7 MG/DL (8.5-10.1); CARBON DIOXIDE LEVEL 29 MMOL/L (20-31); CHLORIDE LEVEL 104 MMOL/L (98-107); CREATININE FOR GFR 0.71 MG/DL (0.55-1.30); GLOMERULAR FILTRATION RATE > 60.0 (>51); GLUCOSE, FASTING 112 MG/DL (60-100); POTASSIUM SERUM 4.4 MMOL/L (3.5-5.1); SODIUM LEVEL 138 MMOL/L (136-145)
[2024-12-02] MEDS ORDERED: FLEET ENEMA PR PRN (09:45)
[2024-12-02] MEDS: BISACODYL 10MG SUPP PR SCH (11:17)
[2024-12-02 11:28] LABS: PROCALCITONIN <0.04 ng/ml
[2024-12-02] MEDS: DICLOFENAC EPOLAMINE 1.3% PATCH TOP SCH (11:29)
[2024-12-02] MEDS: oxyCODONE 5MG TAB PO SCH (13:28)
[2024-12-02] MEDS: MIRALAX *UNIT DOSE* 17GM PACKET PO SCH (19:53)
[2024-12-02] MEDS: FLEET ENEMA PR SCH (20:10)
[2024-12-02] MEDS: KETOROLAC 30 MG/ML 1ML VIAL IV ONE (22:15)
[2024-12-03 03:55] VITALS: BP 145/99; TEMP 97.9; O2SAT 99
[2024-12-03 06:13] LABS: HEMATOCRIT 42.4 % (36.0-47.0); HEMOGLOBIN 13.8 g/dl (12.0-15.5); MEAN CORPUSCULAR HEMOGLOBIN 28.2 pg (27.0-33.0); MEAN CORPUSCULAR HGB CONC 32.5 g/dl (32.0-36.5); MEAN CORPUSCULAR VOLUME 86.5 fl (80.0-96.0); PLATELET COUNT, AUTOMATED 364 10^3/uL (150-450); WHITE BLOOD COUNT 8.9 10^3/uL (4.0-10.0)
[2024-12-03 06:35] LABS: BLOOD UREA NITROGEN 16 MG/DL (9-23); CALCIUM LEVEL 8.8 MG/DL (8.5-10.1); CARBON DIOXIDE LEVEL 27 MMOL/L (20-31); CHLORIDE LEVEL 105 MMOL/L (98-107); CREATININE FOR GFR 0.74 MG/DL (0.55-1.30); GLOMERULAR FILTRATION RATE > 60.0 (>51); GLUCOSE, FASTING 125 MG/DL (60-100); POTASSIUM SERUM 4.1 MMOL/L (3.5-5.1); SODIUM LEVEL 139 MMOL/L (136-145)
[2024-12-03 08:00] VITALS: BP 144/91; TEMP 97.9; O2SAT 95
[2024-12-03 12:00] VITALS: BP 142/91; TEMP 98.6; O2SAT 96
[2024-12-03] MEDS: oxyCODONE 5MG TAB PO ONE (16:10)
[2024-12-03 21:02] VITALS: BP 144/93; TEMP 98.4; O2SAT 94
[2024-12-03] MEDS: AUGMENTIN 875 MG TAB PO SCH (21:07)
[2024-12-03] MEDS: SENNA 8.6 MG TAB (SENOKOT) PO SCH (21:07)
[2024-12-03] MEDS: MORPHINE SULFATE TAB EXT REL 30 MG PO SCH (21:08)
[2024-12-03] MEDS: oxyCODONE 5MG TAB PO PRN (23:24)
[2024-12-04 04:18] VITALS: BP 152/93; TEMP 98.1; O2SAT 92
[2024-12-04 06:13] LABS: HEMATOCRIT 45.3 % (36.0-47.0); HEMOGLOBIN 14.6 g/dl (12.0-15.5); MEAN CORPUSCULAR HEMOGLOBIN 27.9 pg (27.0-33.0); MEAN CORPUSCULAR HGB CONC 32.2 g/dl (32.0-36.5); MEAN CORPUSCULAR VOLUME 86.5 fl (80.0-96.0); PLATELET COUNT, AUTOMATED 383 10^3/uL (150-450); RED BLOOD COUNT 5.24 10^6/uL (4.00-5.40); WHITE BLOOD COUNT 10.1 10^3/uL (4.0-10.0)
[2024-12-04 06:39] LABS: BLOOD UREA NITROGEN 14 MG/DL (9-23); CALCIUM LEVEL 8.7 MG/DL (8.5-10.1); CARBON DIOXIDE LEVEL 30 MMOL/L (20-31); CHLORIDE LEVEL 101 MMOL/L (98-107); CREATININE FOR GFR 0.72 MG/DL (0.55-1.30); GLOMERULAR FILTRATION RATE > 60.0 (>51); GLUCOSE, FASTING 106 MG/DL (60-100); POTASSIUM SERUM 4.1 MMOL/L (3.5-5.1); SODIUM LEVEL 140 MMOL/L (136-145)
[2024-12-04 08:00] VITALS: BP 153/97; TEMP 98.1; O2SAT 96
[2024-12-04 12:00] VITALS: BP 164/93; TEMP 97.9; O2SAT 94
[2024-12-04] MEDS ORDERED: oxyCODONE 5MG TAB PO PRN (12:30)
[2024-12-04] MEDS: ONDANSETRON 4MG ORAL DISINTEGRATING TAB PO ONE (13:52)
[2024-12-04] MEDS: MORPHINE SULFATE TAB EXT REL 30 MG PO ONE (13:53)
[2024-12-04] MEDS: GABAPENTIN 300 MG CAP PO SCH (16:06)
[2024-12-04] MEDS: ONDANSETRON 4MG ORAL DISINTEGRATING TAB SL SCH (16:06)
[2024-12-04 19:33] VITALS: TEMP 98.1; O2SAT 94
[2024-12-04 21:22] VITALS: BP 94/62
[2024-12-04] MEDS: CYCLOBENZAPRINE 10MG TABLET PO SCH (21:41)
[2024-12-04] MEDS ORDERED: NALOXONE INJ 0.4MG/1ML VIAL IV PRN (23:15)
[2024-12-04 23:49] VITALS: BP 109/79; TEMP 98.6; O2SAT 93
[2024-12-05] MEDS: MORPHINE 2 MG/ML 1ML VIAL IV PRN (02:27)
[2024-12-05 02:29] VITALS: BP 143/92; O2SAT 93
[2024-12-05 04:35] VITALS: BP 140/93; TEMP 98.1; O2SAT 93
[2024-12-05 08:00] VITALS: BP 145/96; TEMP 98.1; O2SAT 98
[2024-12-05] MEDS: ENOXAPARIN 40MG/0.4ML SYRINGE (J1650 PER 10MG) SC SCH (08:34)
[2024-12-05] MEDS ORDERED: FLEET ENEMA PR PRN (09:10)
[2024-12-05] MEDS ORDERED: BISACODYL 10MG SUPP PR PRN (09:10)
[2024-12-05] MEDS: MORPHINE SULFATE TAB EXT REL 30 MG PO ONE (09:37)
[2024-12-05 10:39] LABS: HEMOGLOBIN 15.2 g/dl (12.0-15.5); MEAN CORPUSCULAR HEMOGLOBIN 27.8 pg (27.0-33.0); MEAN CORPUSCULAR HGB CONC 31.7 g/dl (32.0-36.5); MEAN CORPUSCULAR VOLUME 87.8 fl (80.0-96.0); PLATELET COUNT, AUTOMATED 381 10^3/uL (150-450); RED BLOOD COUNT 5.47 10^6/uL (4.00-5.40); WHITE BLOOD COUNT 10.8 10^3/uL (4.0-10.0)
[2024-12-05 11:02] LABS: BLOOD UREA NITROGEN 18 MG/DL (9-23); CALCIUM LEVEL 8.7 MG/DL (8.5-10.1); CARBON DIOXIDE LEVEL 29 MMOL/L (20-31); CHLORIDE LEVEL 101 MMOL/L (98-107); CREATININE FOR GFR 0.73 MG/DL (0.55-1.30); GLOMERULAR FILTRATION RATE > 60.0 (>51); GLUCOSE, FASTING 133 MG/DL (60-100); POTASSIUM SERUM 3.5 MMOL/L (3.5-5.1); SODIUM LEVEL 138 MMOL/L (136-145)
[2024-12-05 12:00] VITALS: BP 104/74; TEMP 97.9; O2SAT 97
[2024-12-05 16:00] VITALS: BP 115/87; TEMP 97.9; O2SAT 95
[2024-12-05] MEDS: oxyCODONE 5MG TAB PO PRN (18:44)
[2024-12-05 20:00] VITALS: BP 152/96; TEMP 97.6; O2SAT 98
[2024-12-05] MEDS: MORPHINE SULFATE TAB EXT REL 30 MG PO SCH (21:22)
[2024-12-06] VITALS (7 sets, daily range): BP systolic 100–178; BP diastolic 73–104; TEMP 97.7–98.6; O2SAT 90–98
[2024-12-06 09:24] LABS: HEMATOCRIT 45.6 % (36.0-47.0); HEMOGLOBIN 14.7 g/dl (12.0-15.5); MEAN CORPUSCULAR HEMOGLOBIN 28.2 pg (27.0-33.0); MEAN CORPUSCULAR HGB CONC 32.2 g/dl (32.0-36.5); MEAN CORPUSCULAR VOLUME 87.4 fl (80.0-96.0); PLATELET COUNT, AUTOMATED 369 10^3/uL (150-450); RED BLOOD COUNT 5.22 10^6/uL (4.00-5.40); WHITE BLOOD COUNT 12.4 10^3/uL (4.0-10.0)
[2024-12-06 09:40] LABS: BLOOD UREA NITROGEN 16 MG/DL (9-23); CALCIUM LEVEL 8.8 MG/DL (8.5-10.1); CARBON DIOXIDE LEVEL 33 MMOL/L (20-31); CHLORIDE LEVEL 100 MMOL/L (98-107); CREATININE FOR GFR 0.64 MG/DL (0.55-1.30); GLOMERULAR FILTRATION RATE > 60.0 (>51); GLUCOSE, FASTING 116 MG/DL (60-100); POTASSIUM SERUM 3.9 MMOL/L (3.5-5.1); SODIUM LEVEL 140 MMOL/L (136-145)
[2024-12-06] MEDS ORDERED: MORP30TASA PO ×2 (16:34)
[2024-12-06] MEDS ORDERED: AMOX875T2 PO (16:34)
[2024-12-06] MEDS ORDERED: MIRA3350 PO (16:35)
[2024-12-06] MEDS ORDERED: NARC1SPR NARES (16:35)
[2024-12-06] MEDS ORDERED: OXYC20TA2 PO (16:35)
[2024-12-06] MEDS ORDERED: SENN-188 PO (16:35)
[2024-12-06] MEDS ORDERED: FLEEENE12 PR (16:35)
[2024-12-06] MEDS: MORPHINE SULFATE TAB EXT REL 30 MG PO SCH (20:25)
[2024-12-07 03:32] VITALS: BP 120/92; TEMP 98.4; O2SAT 94
[2024-12-07 05:47] LABS: HEMATOCRIT 45.8 % (36.0-47.0); HEMOGLOBIN 14.6 g/dl (12.0-15.5); MEAN CORPUSCULAR HEMOGLOBIN 28.3 pg (27.0-33.0); MEAN CORPUSCULAR HGB CONC 31.9 g/dl (32.0-36.5); MEAN CORPUSCULAR VOLUME 88.9 fl (80.0-96.0); PLATELET COUNT, AUTOMATED 341 10^3/uL (150-450); RED BLOOD COUNT 5.15 10^6/uL (4.00-5.40); WHITE BLOOD COUNT 10.7 10^3/uL (4.0-10.0)
[2024-12-07 06:12] LABS: BLOOD UREA NITROGEN 14 MG/DL (9-23); CALCIUM LEVEL 8.8 MG/DL (8.5-10.1); CARBON DIOXIDE LEVEL 33 MMOL/L (20-31); CHLORIDE LEVEL 98 MMOL/L (98-107); CREATININE FOR GFR 0.78 MG/DL (0.55-1.30); GLOMERULAR FILTRATION RATE > 60.0 (>51); GLUCOSE, FASTING 114 MG/DL (60-100); POTASSIUM SERUM 4.2 MMOL/L (3.5-5.1); SODIUM LEVEL 140 MMOL/L (136-145)
[2024-12-07 07:51] VITALS: BP 120/88; TEMP 97.7; O2SAT 94
[2024-12-07] MEDS ORDERED: ACETAMINOPHEN 325 MG TAB PO PRN (08:55)
[2024-12-07] MEDS: MORPHINE SULFATE TAB EXT REL 30 MG PO SCH (09:35)
[2024-12-07] MEDS: MELOXICAM (MOBIC) 7.5 MG TAB PO SCH (11:52)
[2024-12-07] MEDS ORDERED: GABA-1172 PO (12:14)
[2024-12-07] MEDS ORDERED: CYCL10TA20 PO (12:14)
[2024-12-07] MEDS ORDERED: DICL1PAT6 TOP (12:14)
[2024-12-07] MEDS ORDERED: MORP30TASA PO (12:30)
[2024-12-07 12:35] VITALS: BP 114/84; TEMP 97.6; O2SAT 93
== END 2024-12-07 15:39 | disposition home or self-care (01) | DRG 137 ==
LOC: M ED 04:50 → M ED INP 14:50 → M MSPAV 16:02
PROVIDERS: ADMIT Student in an Organized Health Care Education/Training Program; ATTEND Internal Medicine
DX: J15.69 Pneumonia due to other Gram-negative bacteria (principal); J96.11 Chronic respiratory failure with hypoxia; C34.11 Malignant neoplasm of upper lobe, right bronchus or lung; J84.10 Pulmonary fibrosis, unspecified; E28.2 Polycystic ovarian syndrome; M54.9 Dorsalgia, unspecified; G89.3 Neoplasm related pain (acute) (chronic); F32.A Depression, unspecified; K59.00 Constipation, unspecified; F41.9 Anxiety disorder, unspecified; K21.9 Gastro-esophageal reflux disease without esophagitis; Z87.891 Personal history of nicotine dependence; Z79.84 Long term (current) use of oral hypoglycemic drugs; Z79.82 Long term (current) use of aspirin; Z79.899 Other long term (current) drug therapy

== ENCOUNTER 2024-12-11 21:52 | Observation (INO) | payer OTHER ==
[~2024-12-11] VITALS: Ht 157.5 cm; Wt 78.6 kg
[~2024-12-11 21:52] MED LIST changes: +AMOX875T2 PO; +CYCL10TA20 PO; +DICL1PAT6 TOP; +FLEEENE12 PR; +MAGN400T33 PO; +MIRA3350 PO; +MORP30TASA PO; +NARC1SPR NARES; +OXYC20TA2 PO; +SENN-186 PO; +SENN-188 PO; +VENTAER INH
[2024-12-11 22:35] LABS: BASO # 0.1 10^3/uL (0.0-0.2); BASO % 0.4 % (0.0-1.0); EOS # 0.5 10^3/uL (0.0-0.5); EOS % 2.8 % (0.0-3.0); HEMATOCRIT 38.4 % (36.0-47.0); HEMOGLOBIN 12.3 g/dl (12.0-15.5); KETONE, URINE AUTO RFX NEGATIVE (NEGATIVE); LEUKOCYTE ESTERASE UR AUTO RFX NEGATIVE (NEGATIVE); LYMPH # 1.5 10^3/uL (1.5-5.0); LYMPH % 8.5 % (24.0-44.0); MEAN CORPUSCULAR HEMOGLOBIN 28.5 pg (27.0-33.0); MEAN CORPUSCULAR VOLUME 88.9 fl (80.0-96.0); MONO # 2.2 10^3/uL (0.0-0.8); MONO % 12.7 % (2.0-8.0); MUCUS, URINE RFX SMALL (NEGATIVE); NEUTROPHILS # 12.8 10^3/uL (1.5-8.5); NEUTROPHILS % 75.2 % (36.0-66.0); NITRITE, URINE AUTO RFX NEGATIVE (NEGATIVE); PLATELET COUNT, AUTOMATED 310 10^3/uL (150-450); RBC, URINE AUTO RFX 10 /HPF (0-3); RED BLOOD COUNT 4.32 10^6/uL (4.00-5.40); SQUAM EPITHELIAL CELL UR AURFX 0 /HPF (0-6); WBC, URINE AUTO RFX 0 /HPF (0-3); WHITE BLOOD COUNT 17.1 10^3/uL (4.0-10.0)
[2024-12-11 22:49] LABS: ABG BASE EXCESS 0.7 (-2.0-2.0); ABG O2 SATURATION 97.4 % (95.0-99.0); ABG PARTIAL PRESSURE CO2 44.1 mmHg (35.0-45.0); ABG STANDARD HCO3 25.1 MMOL/L. (22.0-26.0); ABG TOTAL CO2 27.3 MMOL/L (22.0-29.0); ABG pH (ARTERIAL) 7.388 UNITS (7.350-7.450)
[2024-12-11 23:07] LABS: ALBUMIN 2.8 G/DL (3.2-5.2); BILIRUBIN,DIRECT 0.2 MG/DL (<0.4); BILIRUBIN,TOTAL 0.4 MG/DL (0.3-1.2); CALCIUM LEVEL 7.9 MG/DL (8.5-10.1); CREATININE FOR GFR 1.16 MG/DL (0.55-1.30); GLOMERULAR FILTRATION RATE 51.4 (>51); POTASSIUM SERUM 3.8 MMOL/L (3.5-5.1); TOTAL PROTEIN 6.4 G/DL (5.7-8.2)
[2024-12-11 23:09] LABS: THYROID STIMULATING HORMONE 3.51 uIU/ML (0.55-4.78)
[2024-12-11 23:15] LABS: DIGOXIN LEVEL 3.1 NG/ML (0.8-2.0)
[2024-12-11] MEDS: NALOXONE INJ 0.4MG/1ML VIAL IV PRN (23:21)
[2024-12-11] MEDS: NS (Normal Saline) 0.9% 1,000 ML IV ONE (23:25)
[2024-12-11] MEDS: METHYLNALTREXONE BROMIDE 12MG/0.6ML VIAL (RELISTOR) SC ONE (23:55)
[2024-12-12] MEDS ORDERED: MOM 30ML SUSPENSION UDC PO PRN (00:50)
[2024-12-12] MEDS ORDERED: NALOXONE INJ 0.4MG/1ML VIAL IV PRN (01:45)
[2024-12-12] MEDS ORDERED: CYCL-707 PO (01:51)
[2024-12-12] MEDS ORDERED: GABA-1172 PO (01:51)
[2024-12-12] MEDS ORDERED: DICL1PAT6 TOP (01:51)
[2024-12-12] MEDS ORDERED: POLY510P14 PO (01:51)
[2024-12-12] MEDS ORDERED: NARC1SPR NARES (01:51)
[2024-12-12] MEDS ORDERED: FAMO1TAB11 PO (01:51)
[2024-12-12] MEDS ORDERED: MORP30TASA PO (01:51)
[2024-12-12] MEDS ORDERED: OXYC20TA2 PO (01:51)
[2024-12-12] MEDS ORDERED: FLEEENE12 PR (01:51)
[2024-12-12] MEDS ORDERED: AMOX875T2 PO (01:51)
[2024-12-12] MEDS ORDERED: HOME MED LIST COMPLETE! XX SCH (01:55)
[2024-12-12 01:59] LABS: BLOOD UREA NITROGEN 21 MG/DL (9-23); CALCIUM LEVEL 7.7 MG/DL (8.5-10.1); CARBON DIOXIDE LEVEL 31 MMOL/L (20-31); CHLORIDE LEVEL 101 MMOL/L (98-107); CREATININE FOR GFR 0.98 MG/DL (0.55-1.30); GLOMERULAR FILTRATION RATE > 60.0 (>51); GLUCOSE, FASTING 127 MG/DL (60-100); MAGNESIUM LEVEL 2.1 MG/DL (1.8-2.4); POTASSIUM SERUM 3.6 MMOL/L (3.5-5.1); SODIUM LEVEL 142 MMOL/L (136-145)
[2024-12-12] MEDS: oxyCODONE 5MG TAB PO PRN (02:25)
[2024-12-12] MEDS ORDERED: DICLOFENAC EPOLAMINE 1.3% PATCH TOP SCH (03:15)
[2024-12-12] MEDS ORDERED: ALBUTEROL 90 MCG/ACT 8GM HFA INHALER INH PRN (03:15)
[2024-12-12] MEDS ORDERED: MIRALAX *UNIT DOSE* 17GM PACKET PO PRN (03:15)
[2024-12-12] MEDS ORDERED: FLEET ENEMA PR PRN (03:15)
[2024-12-12] MEDS ORDERED: GLUCAGON INJ 1MG VIAL SC PRN (03:20)
[2024-12-12] MEDS ORDERED: DEXTROSE 50% 50ML SYRINGE IV PRN (03:20)
[2024-12-12] MEDS ORDERED: GLUCOSE 4 GM CHEW PO PRN (03:20)
[2024-12-12 03:41] VITALS: BP 132/91; TEMP 98.9; O2SAT 97
[2024-12-12] MEDS: traZODone 100 MG TAB PO SCH (04:14)
[2024-12-12] MEDS: CYCLOBENZAPRINE 10MG TABLET PO SCH (04:25)
[2024-12-12] MEDS: SENNA 8.6 MG TAB (SENOKOT) PO PRN (04:26)
[2024-12-12] MEDS: METOPROLOL TART 12.5 MG PER 1/2 TAB PO ONE (04:26)
[2024-12-12] MEDS: ACETAMINOPHEN 325 MG TAB PO PRN (04:27)
[2024-12-12 05:22] LABS: HEMOGLOBIN 12.3 g/dl (12.0-15.5); MEAN CORPUSCULAR HEMOGLOBIN 28.1 pg (27.0-33.0); MEAN CORPUSCULAR HGB CONC 32.4 g/dl (32.0-36.5); MEAN CORPUSCULAR VOLUME 86.8 fl (80.0-96.0); PLATELET COUNT, AUTOMATED 327 10^3/uL (150-450); RED BLOOD COUNT 4.38 10^6/uL (4.00-5.40); WHITE BLOOD COUNT 14.9 10^3/uL (4.0-10.0)
[2024-12-12 05:50] LABS: ALBUMIN 2.9 G/DL (3.2-5.2); ALKALINE PHOSPHATASE 69 U/L (35-104); ALT/SGPT 18 U/L (7.0-40); AST/SGOT 16 U/L (<34); BILIRUBIN,TOTAL 0.4 MG/DL (0.3-1.2); BLOOD UREA NITROGEN 16 MG/DL (9-23); CALCIUM LEVEL 8.6 MG/DL (8.5-10.1); CARBON DIOXIDE LEVEL 30 MMOL/L (20-31); CHLORIDE LEVEL 101 MMOL/L (98-107); CREATININE FOR GFR 0.83 MG/DL (0.55-1.30); GLOMERULAR FILTRATION RATE > 60.0 (>51); GLUCOSE, FASTING 112 MG/DL (60-100); SODIUM LEVEL 142 MMOL/L (136-145); TOTAL PROTEIN 6.7 G/DL (5.7-8.2)
[2024-12-12] MEDS ORDERED: INSULIN LISPRO (NovoLOG) PER UNIT SC SCH ×2 (07:30→21:00)
[2024-12-12 08:00] VITALS: BP 130/92; TEMP 97.7; O2SAT 97
[2024-12-12] MEDS: MORPHINE SULFATE TAB EXT REL 15 MG PO SCH (08:02)
[2024-12-12] MEDS: ENOXAPARIN 40MG/0.4ML SYRINGE (J1650 PER 10MG) SC SCH (08:10)
[2024-12-12] MEDS: KETOROLAC 30 MG/ML 1ML VIAL IV SCH (08:10)
[2024-12-12] MEDS: buPROPion **XL** TABLET 150MG (WELLBUTRIN XL) PO SCH (08:11)
[2024-12-12] MEDS: GABAPENTIN 300 MG CAP PO SCH (08:12)
[2024-12-12] MEDS: FAMOTIDINE 20 MG TAB PO SCH (08:12)
[2024-12-12] MEDS: AUGMENTIN 875 MG TAB PO SCH (08:12)
[2024-12-12] MEDS: ASPIRIN 81MG ENTERIC TABLET PO SCH (08:12)
[2024-12-12] MEDS: METOPROLOL TART 25 MG TABLET PO ONE (08:12)
[2024-12-12] MEDS: MAGNESIUM OXIDE 400MG TAB (MAG-OX) PO SCH (08:13)
[2024-12-12 12:00] VITALS: BP 122/90; TEMP 97.3; O2SAT 97
[2024-12-12] MEDS ORDERED: METOPROLOL TART 25 MG TABLET PO SCH (12:00)
[2024-12-12] MEDS: ACETAMINOPHEN 500 MG TAB PO SCH (13:06)
[2024-12-12] MEDS ORDERED: FLEET OIL RETENTION ENEMA PR PRN (14:20)
[2024-12-12] MEDS: MIRALAX *UNIT DOSE* 17GM PACKET PO ONE (15:11)
[2024-12-12] MEDS: ONDANSETRON 4MG ORAL DISINTEGRATING TAB PO SCH (15:11)
[2024-12-12] MEDS: LACTULOSE 20GM/30ML SYRUP UDC PO ONE (15:11)
[2024-12-12] MEDS: METOPROLOL TART 25 MG TABLET PO SCH (18:25)
[2024-12-12 20:00] VITALS: BP 126/85; TEMP 97.5; O2SAT 99
[2024-12-12] MEDS: SENOKOT S TAB PO SCH (20:41)
[2024-12-12] MEDS: MORPHINE SULFATE TAB EXT REL 30 MG PO SCH (20:41)
[2024-12-12] MEDS: MIRALAX *UNIT DOSE* 17GM PACKET PO SCH (20:42)
[2024-12-13 03:43] VITALS: BP 113/79; TEMP 97.9; O2SAT 98
[2024-12-13] MEDS: MOM 30ML SUSPENSION UDC PO SCH (08:27)
[2024-12-13 08:33] VITALS: BP 145/92
[2024-12-13] MEDS ORDERED: PROCHLORPERAZINE 10MG 2ML VIAL IV PRN (09:25)
[2024-12-13] MEDS: PROCHLORPERAZINE 10MG 2ML VIAL IV PRN (09:31)
[2024-12-13 09:51] LABS: IONIZED CALCIUM 4.3 MG/DL (4.5-5.3)
[2024-12-13 09:57] LABS: BASO # 0.1 10^3/uL (0.0-0.2); BASO % 0.4 % (0.0-1.0); EOS # 0.2 10^3/uL (0.0-0.5); EOS % 1.4 % (0.0-3.0); HEMATOCRIT 41.4 % (36.0-47.0); HEMOGLOBIN 13.6 g/dl (12.0-15.5); LYMPH % 8.1 % (24.0-44.0); MEAN CORPUSCULAR HEMOGLOBIN 28.3 pg (27.0-33.0); MEAN CORPUSCULAR HGB CONC 32.9 g/dl (32.0-36.5); MEAN CORPUSCULAR VOLUME 86.1 fl (80.0-96.0); MONO # 1.1 10^3/uL (0.0-0.8); NEUTROPHILS # 9.4 10^3/uL (1.5-8.5); NEUTROPHILS % 80.6 % (36.0-66.0); PLATELET COUNT, AUTOMATED 357 10^3/uL (150-450); RED BLOOD COUNT 4.81 10^6/uL (4.00-5.40); WHITE BLOOD COUNT 11.7 10^3/uL (4.0-10.0)
[2024-12-13 10:01] LABS: ERYTHROCYTE SEDIMENTATION RATE 100 mm/hr (0-30)
[2024-12-13 10:29] LABS: BLOOD UREA NITROGEN 12 MG/DL (9-23); C REACTIVE PROTEIN QUANTITATIV 14.11 MG/DL (<1.0); CALCIUM LEVEL 8.7 MG/DL (8.5-10.1); CARBON DIOXIDE LEVEL 32 MMOL/L (20-31); CHLORIDE LEVEL 98 MMOL/L (98-107); CREATININE FOR GFR 0.69 MG/DL (0.55-1.30); GLOMERULAR FILTRATION RATE > 60.0 (>51); GLUCOSE, FASTING 124 MG/DL (60-100); MAGNESIUM LEVEL 1.6 MG/DL (1.8-2.4); POTASSIUM SERUM 3.2 MMOL/L (3.5-5.1); SODIUM LEVEL 139 MMOL/L (136-145)
[2024-12-13 10:35] LABS: PROCALCITONIN 0.13 ng/ml
[2024-12-13 13:13] VITALS: BP 131/86; TEMP 97.5; O2SAT 97
[2024-12-13] MEDS ORDERED: PILL CUTTER 1 EACH XX PRN (19:45)
[2024-12-13 20:00] VITALS: BP 119/91; TEMP 97.7; O2SAT 96
[2024-12-13] MEDS: POTASSIUM CHLORIDE 10MEQ SR TABLET PO ONE (20:12)
[2024-12-13] MEDS: MAG SULF 1GM/100ML (MAG RUN) 1 GM in IV 1 EA IV SCH (20:13)
[2024-12-14] MEDS: METOPROLOL TART 25 MG TABLET PO SCH (00:19)
[2024-12-14 04:00] VITALS: BP 123/93; TEMP 97.7; O2SAT 96
[2024-12-14 06:26] LABS: BASO # 0.1 10^3/uL (0.0-0.2); BASO % 0.5 % (0.0-1.0); EOS # 0.5 10^3/uL (0.0-0.5); EOS % 4.1 % (0.0-3.0); HEMATOCRIT 42.9 % (36.0-47.0); HEMOGLOBIN 13.7 g/dl (12.0-15.5); LYMPH # 1.3 10^3/uL (1.5-5.0); LYMPH % 12.3 % (24.0-44.0); MEAN CORPUSCULAR HEMOGLOBIN 27.9 pg (27.0-33.0); MEAN CORPUSCULAR HGB CONC 31.9 g/dl (32.0-36.5); MEAN CORPUSCULAR VOLUME 87.4 fl (80.0-96.0); MONO # 1.1 10^3/uL (0.0-0.8); MONO % 10.5 % (2.0-8.0); NEUTROPHILS # 7.9 10^3/uL (1.5-8.5); NEUTROPHILS % 72.2 % (36.0-66.0); PLATELET COUNT, AUTOMATED 408 10^3/uL (150-450); RED BLOOD COUNT 4.91 10^6/uL (4.00-5.40); WHITE BLOOD COUNT 10.9 10^3/uL (4.0-10.0)
[2024-12-14 06:57] LABS: DIGOXIN LEVEL 0.6 NG/ML (0.8-2.0)
[2024-12-14 06:58] LABS: BLOOD UREA NITROGEN 10 MG/DL (9-23); CALCIUM LEVEL 8.9 MG/DL (8.5-10.1); CARBON DIOXIDE LEVEL 33 MMOL/L (20-31); CHLORIDE LEVEL 100 MMOL/L (98-107); GLOMERULAR FILTRATION RATE > 60.0 (>51); GLUCOSE, FASTING 110 MG/DL (60-100); POTASSIUM SERUM 4.1 MMOL/L (3.5-5.1); SODIUM LEVEL 141 MMOL/L (136-145)
[2024-12-14] MEDS ORDERED: METO75TA PO (10:34)
[2024-12-14] MEDS ORDERED: ONDA-282 PO (10:34)
[2024-12-14] MEDS ORDERED: POLY510P14 PO (10:34)
[2024-12-14] MEDS ORDERED: NARC1SPR NARES (10:34)
[2024-12-14] MEDS ORDERED: OXYC20TA2 PO (10:34)
[2024-12-14] MEDS ORDERED: SENN-186 PO (10:34)
[2024-12-14] MEDS ORDERED: MORP30TASA PO (10:34)
[2024-12-14 12:00] VITALS: BP 146/78; TEMP 97.2; O2SAT 99
[2024-12-14 18:00] VITALS: BP 100/75
[2024-12-14 18:08] LABS: KETONE, URINE AUTO RFX NEGATIVE (NEGATIVE); NITRITE, URINE AUTO RFX NEGATIVE (NEGATIVE); RBC, URINE AUTO RFX 3 /HPF (0-3); SQUAM EPITHELIAL CELL UR AURFX 2 /HPF (0-6); WBC, URINE AUTO RFX 3 /HPF (0-3)
[2024-12-14 18:20] LABS: LEUKOCYTE ESTERASE UR AUTO RFX 1+ (NEGATIVE)
== END 2024-12-14 18:59 | disposition home or self-care (01) ==
LOC: M ED 21:52 → M ED INP 21:53 → M MSPAV 12-12 03:35
PROVIDERS: ADMIT Student in an Organized Health Care Education/Training Program; ATTEND Student in an Organized Health Care Education/Training Program
DX: G92.9 Unspecified toxic encephalopathy (principal); T40.2X1A Poisoning by other opioids, accidental (unintentional), initial encounter; I47.10 Supraventricular tachycardia, unspecified; Z98.890 Other specified postprocedural states; R53.1 Weakness; R33.9 Retention of urine, unspecified; G89.3 Neoplasm related pain (acute) (chronic); C34.11 Malignant neoplasm of upper lobe, right bronchus or lung; M54.9 Dorsalgia, unspecified; G89.29 Other chronic pain; D72.829 Elevated white blood cell count, unspecified; Z91.128 Patient's intentional underdosing of medication regimen for other reason; R10.9 Unspecified abdominal pain; R89.2 Abnormal level of other drugs, medicaments and biological substances in specimens from other organs, systems and tissues; K59.03 Drug induced constipation; E28.2 Polycystic ovarian syndrome; F41.9 Anxiety disorder, unspecified; F32.A Depression, unspecified; K21.9 Gastro-esophageal reflux disease without esophagitis; J84.10 Pulmonary fibrosis, unspecified; Z87.891 Personal history of nicotine dependence; Z79.899 Other long term (current) drug therapy; Z79.2 Long term (current) use of antibiotics; Z79.82 Long term (current) use of aspirin; Z79.890 Hormone replacement therapy; Z79.84 Long term (current) use of oral hypoglycemic drugs
CPT/HCPCS: 36415; 51702; 71045; 74018; 80048; 80053; 80076; 80162; 81001; 82330; 82803; 83735; 84145; 84443; 85025; 85027; 85652; 86140; 87086; 87486; 87581; 87633; 87798; 93005; 93041; 94760; 96361; 96372; 96374; 96375; 96376; 97116; 97161; 97530; 99285; J0780; J1650; J1885; J2212; J2310; J3475

== ENCOUNTER → 2024-12-20 | Outpatient (CLI) | payer OTHER ==
[~2024-12-20] MED LIST changes: +CYCL-707 PO; +FAMO1TAB11 PO; +METO75TA PO; +ONDA-282 PO; +POLY510P14 PO
== END ==
LOC: M PAL 13:57
PROVIDERS: ATTEND Family Medicine
DX: C34.90 Malignant neoplasm of unspecified part of unspecified bronchus or lung (principal); Z79.891 Long term (current) use of opiate analgesic; Z79.82 Long term (current) use of aspirin; Z79.899 Other long term (current) drug therapy; Z79.84 Long term (current) use of oral hypoglycemic drugs

== ENCOUNTER 2024-12-28 00:49 | Inpatient (IN) | payer OTHER ==
[~2024-12-28] VITALS: Ht 160 cm; Wt 75.5 kg
[2024-12-28] MEDS: ACETAMINOPHEN 325 MG TAB PO ONE (04:56)
[2024-12-28] MEDS: LIDOCAINE 2% 5ML JELLY UROJET TOP ONE (06:55)
[2024-12-28 07:43] LABS: BASO % 0.3 % (0.0-1.0); EOS # 0.1 10^3/uL (0.0-0.5); EOS % 1.2 % (0.0-3.0); HEMATOCRIT 38.6 % (36.0-47.0); HEMOGLOBIN 12.7 g/dl (12.0-15.5); LYMPH # 1.6 10^3/uL (1.5-5.0); LYMPH % 12.9 % (24.0-44.0); MEAN CORPUSCULAR HEMOGLOBIN 28.3 pg (27.0-33.0); MEAN CORPUSCULAR HGB CONC 32.9 g/dl (32.0-36.5); MEAN CORPUSCULAR VOLUME 86.2 fl (80.0-96.0); MONO # 1.2 10^3/uL (0.0-0.8); MONO % 9.8 % (2.0-8.0); NEUTROPHILS # 9.2 10^3/uL (1.5-8.5); NEUTROPHILS % 75.6 % (36.0-66.0); PLATELET COUNT, AUTOMATED 431 10^3/uL (150-450); RED BLOOD COUNT 4.48 10^6/uL (4.00-5.40); WHITE BLOOD COUNT 12.1 10^3/uL (4.0-10.0)
[2024-12-28] MEDS ORDERED: METO75TA PO (07:47)
[2024-12-28] MEDS ORDERED: POLY17PO10 PO (07:47)
[2024-12-28] MEDS ORDERED: SENN-188 PO (07:47)
[2024-12-28] MEDS ORDERED: ONDA-282 PO (07:47)
[2024-12-28 07:50] LABS: KETONE, URINE AUTO RFX TRACE mg/dL (NEGATIVE); RBC, URINE AUTO RFX 32 /HPF (0-3); SQUAM EPITHELIAL CELL UR AURFX 1 /HPF (0-6)
[2024-12-28] MEDS ORDERED: HOME MED LIST COMPLETE! XX SCH (07:50)
[2024-12-28] MEDS ORDERED: ESTR0.5T3 PO (07:50)
[2024-12-28] MEDS ORDERED: METR-265 PO (07:50)
[2024-12-28] MEDS ORDERED: DOCU100C16 PO (07:50)
[2024-12-28 07:55] LABS: LEUKOCYTE ESTERASE UR AUTO RFX 3+ (NEGATIVE); NITRITE, URINE AUTO RFX POSITIVE (NEGATIVE); WBC, URINE AUTO RFX TNTC /HPF (0-3)
[2024-12-28] MEDS: PIPERACILLIN/TAZOBACTAM SOD 4.5 GM in DEXTROSE 5% (D5W) ADV/MINI-BAG 50 ML IV ONE (08:07)
[2024-12-28 08:20] LABS: ALBUMIN 3.1 G/DL (3.2-5.2); ALKALINE PHOSPHATASE 64 U/L (35-104); ALT/SGPT 19 U/L (7.0-40); AST/SGOT 13 U/L (<34); BILIRUBIN,DIRECT 0.2 MG/DL (<0.4); BILIRUBIN,TOTAL 0.4 MG/DL (0.3-1.2); BLOOD UREA NITROGEN 13 MG/DL (9-23); CALCIUM LEVEL 8.3 MG/DL (8.5-10.1); CARBON DIOXIDE LEVEL 24 MMOL/L (20-31); CHLORIDE LEVEL 107 MMOL/L (98-107); CREATININE FOR GFR 0.67 MG/DL (0.55-1.30); GLOMERULAR FILTRATION RATE > 60.0 (>51); GLUCOSE, FASTING 114 MG/DL (60-100); SODIUM LEVEL 141 MMOL/L (136-145); TOTAL PROTEIN 6.5 G/DL (5.7-8.2)
[2024-12-28] MEDS ORDERED: VANCOMYCIN HCL 1,000 MG, VIAL MATE ADAPTER 1 EACH in NS 250 ML IP ONE (08:20)
[2024-12-28] MEDS ORDERED: MIRALAX *UNIT DOSE* 17GM PACKET PO PRN (08:25)
[2024-12-28] MEDS ORDERED: DICLOFENAC EPOLAMINE 1.3% PATCH TOP SCH (08:25)
[2024-12-28] MEDS ORDERED: FLEET ENEMA PR PRN (08:25)
[2024-12-28] MEDS ORDERED: IPRATROPIUM 0.5MG/ALBUTEROL 2.5MG INH SOL UD 3ML (DUONEB) NEB PRN (08:25)
[2024-12-28 09:30] LABS: VANCOMYCIN RANDOM 9.7 UG/ML
[2024-12-28] MEDS: METOPROLOL TART 25 MG TABLET PO SCH (12:30)
[2024-12-28] MEDS: DOCUSATE SODIUM 100MG CAPSULE PO SCH (12:31)
[2024-12-28] MEDS: buPROPion **XL** TABLET 150MG (WELLBUTRIN XL) PO SCH (12:31)
[2024-12-28] MEDS: MAGNESIUM OXIDE 400MG TAB (MAG-OX) PO SCH (12:31)
[2024-12-28] MEDS: GABAPENTIN 300 MG CAP PO SCH (12:31)
[2024-12-28] MEDS: FAMOTIDINE 20 MG TAB PO SCH (12:32)
[2024-12-28] MEDS: SENNA 8.6 MG TAB (SENOKOT) PO SCH (12:33)
[2024-12-28] MEDS: ASPIRIN 81MG ENTERIC TABLET PO SCH (12:33)
[2024-12-28] MEDS: VANCOMYCIN HCL 1,000 MG, VIAL MATE ADAPTER 1 EACH in NS 250 ML IV SCH (12:52)
[2024-12-28] MEDS: MIRALAX *UNIT DOSE* 17GM PACKET PO SCH (16:30)
[2024-12-28] MEDS ORDERED: BISACODYL 10MG SUPP PR PRN (16:30)
[2024-12-28 18:01] VITALS: BP 130/96; TEMP 97.8; O2SAT 97
[2024-12-28 20:40] VITALS: BP 102/75; TEMP 97.5; O2SAT 96
[2024-12-28] MEDS: CYCLOBENZAPRINE 10MG TABLET PO SCH (22:22)
[2024-12-28] MEDS: traZODone 100 MG TAB PO SCH (22:24)
[2024-12-29] VITALS: BP 136/90; TEMP 97.7; O2SAT 97
[2024-12-29] MEDS ORDERED: PIPERACILLIN/TAZOBACTAM SOD 4.5 GM in DEXTROSE 5% (D5W) ADV/MINI-BAG 50 ML IV SCH (01:00)
[2024-12-29] MEDS: PIPERACILLIN/TAZOBACTAM SOD 4.5 GM in DEXTROSE 5% (D5W) ADV/MINI-BAG 50 ML IV SCH (01:52)
[2024-12-29 04:00] VITALS: BP 139/90; TEMP 97.5; O2SAT 96; O2SAT 97
[2024-12-29 06:10] LABS: HEMATOCRIT 42.8 % (36.0-47.0); HEMOGLOBIN 13.5 g/dl (12.0-15.5); MEAN CORPUSCULAR HGB CONC 31.5 g/dl (32.0-36.5); MEAN CORPUSCULAR VOLUME 88.8 fl (80.0-96.0); PLATELET COUNT, AUTOMATED 392 10^3/uL (150-450); RED BLOOD COUNT 4.82 10^6/uL (4.00-5.40); WHITE BLOOD COUNT 8.7 10^3/uL (4.0-10.0)
[2024-12-29 06:40] LABS: BLOOD UREA NITROGEN 11 MG/DL (9-23); CALCIUM LEVEL 8.8 MG/DL (8.5-10.1); CARBON DIOXIDE LEVEL 24 MMOL/L (20-31); CHLORIDE LEVEL 107 MMOL/L (98-107); CREATININE FOR GFR 0.67 MG/DL (0.55-1.30); GLOMERULAR FILTRATION RATE > 60.0 (>51); GLUCOSE, FASTING 92 MG/DL (60-100); SODIUM LEVEL 141 MMOL/L (136-145)
[2024-12-29 08:00] VITALS: BP 143/90; TEMP 97.3; O2SAT 97
[2024-12-29] MEDS ORDERED: PANTOPRAZOLE 40MG TAB (PROTONIX) PO SCH (09:00)
[2024-12-29] MEDS: ENOXAPARIN 40MG/0.4ML SYRINGE (J1650 PER 10MG) SC SCH (10:00)
[2024-12-29] MEDS: ONDANSETRON 4MG 2ML VIAL IV PRN (10:46)
[2024-12-29 12:00] VITALS: BP 127/82; TEMP 97.9; O2SAT 95
[2024-12-29 16:00] VITALS: BP 121/82; TEMP 97.7; O2SAT 95
[2024-12-29] MEDS ORDERED: ISOVUE-370 76% 100ML VIAL As Ordered ONE (16:01)
[2024-12-29 20:00] VITALS: BP 98/55; TEMP 97.3; O2SAT 98
[2024-12-30] VITALS (8 sets, daily range): BP systolic 92–110; BP diastolic 60–77; TEMP 97.5–98.8; O2SAT 93–97
[2024-12-30 05:53] LABS: HEMATOCRIT 39.4 % (36.0-47.0); HEMOGLOBIN 12.7 g/dl (12.0-15.5); MEAN CORPUSCULAR HEMOGLOBIN 28.4 pg (27.0-33.0); MEAN CORPUSCULAR HGB CONC 32.2 g/dl (32.0-36.5); MEAN CORPUSCULAR VOLUME 88.1 fl (80.0-96.0); PLATELET COUNT, AUTOMATED 389 10^3/uL (150-450); RED BLOOD COUNT 4.47 10^6/uL (4.00-5.40); WHITE BLOOD COUNT 9.1 10^3/uL (4.0-10.0)
[2024-12-30] MEDS: ONDANSETRON 4MG ORAL DISINTEGRATING TAB PO ONE (06:07)
[2024-12-30 06:18] LABS: BLOOD UREA NITROGEN 12 MG/DL (9-23); CALCIUM LEVEL 8.7 MG/DL (8.5-10.1); CARBON DIOXIDE LEVEL 24 MMOL/L (20-31); CHLORIDE LEVEL 107 MMOL/L (98-107); CREATININE FOR GFR 0.75 MG/DL (0.55-1.30); GLOMERULAR FILTRATION RATE > 60.0 (>51); GLUCOSE, FASTING 118 MG/DL (60-100); POTASSIUM SERUM 3.6 MMOL/L (3.5-5.1); SODIUM LEVEL 142 MMOL/L (136-145)
[2024-12-30] MEDS: LevoFLOXacin 750 MG TABLET PO SCH (20:49)
[2024-12-30] MEDS ORDERED: LevoFLOXacin 500 MG TABLET PO SCH (21:00)
[2024-12-31] VITALS (8 sets, daily range): BP systolic 100–114; BP diastolic 58–77; TEMP 97.5–98.8; O2SAT 93–97
[2024-12-31] MEDS: ACETAMINOPHEN 325 MG TAB PO PRN (00:58)
[2024-12-31 05:15] LABS: HEMATOCRIT 37.3 % (36.0-47.0); HEMOGLOBIN 12.1 g/dl (12.0-15.5); MEAN CORPUSCULAR HEMOGLOBIN 27.9 pg (27.0-33.0); MEAN CORPUSCULAR HGB CONC 32.4 g/dl (32.0-36.5); MEAN CORPUSCULAR VOLUME 86.1 fl (80.0-96.0); PLATELET COUNT, AUTOMATED 363 10^3/uL (150-450); RED BLOOD COUNT 4.33 10^6/uL (4.00-5.40); WHITE BLOOD COUNT 7.8 10^3/uL (4.0-10.0)
[2024-12-31 05:45] LABS: BLOOD UREA NITROGEN 12 MG/DL (9-23); CALCIUM LEVEL 8.4 MG/DL (8.5-10.1); CARBON DIOXIDE LEVEL 26 MMOL/L (20-31); CHLORIDE LEVEL 106 MMOL/L (98-107); CREATININE FOR GFR 0.63 MG/DL (0.55-1.30); GLOMERULAR FILTRATION RATE > 60.0 (>51); GLUCOSE, FASTING 101 MG/DL (60-100); POTASSIUM SERUM 3.9 MMOL/L (3.5-5.1); SODIUM LEVEL 141 MMOL/L (136-145)
[2025-01-01 04:15] VITALS: BP 99/74; TEMP 97.5; O2SAT 97
[2025-01-01 05:25] LABS: HEMATOCRIT 38.4 % (36.0-47.0); HEMOGLOBIN 12.3 g/dl (12.0-15.5); MEAN CORPUSCULAR HEMOGLOBIN 28.2 pg (27.0-33.0); MEAN CORPUSCULAR VOLUME 88.1 fl (80.0-96.0); PLATELET COUNT, AUTOMATED 365 10^3/uL (150-450); RED BLOOD COUNT 4.36 10^6/uL (4.00-5.40); WHITE BLOOD COUNT 7.6 10^3/uL (4.0-10.0)
[2025-01-01 05:50] LABS: BLOOD UREA NITROGEN 13 MG/DL (9-23); CALCIUM LEVEL 8.7 MG/DL (8.5-10.1); CARBON DIOXIDE LEVEL 24 MMOL/L (20-31); CHLORIDE LEVEL 107 MMOL/L (98-107); CREATININE FOR GFR 0.63 MG/DL (0.55-1.30); GLOMERULAR FILTRATION RATE > 60.0 (>51); GLUCOSE, FASTING 107 MG/DL (60-100); POTASSIUM SERUM 4.1 MMOL/L (3.5-5.1); SODIUM LEVEL 142 MMOL/L (136-145)
[2025-01-01 08:00] VITALS: BP 106/76; TEMP 97.5; O2SAT 99
[2025-01-01] MEDS ORDERED: LEVO75TAB PO (11:06)
== END 2025-01-01 11:49 | disposition home or self-care (01) | DRG 720 ==
LOC: EDBD 00:49 → M ED 00:49 → M ED INP 08:16 → M MSPAV 18:03
PROVIDERS: ADMIT Student in an Organized Health Care Education/Training Program; ATTEND Student in an Organized Health Care Education/Training Program
DX: A41.9 Sepsis, unspecified organism (principal); N39.0 Urinary tract infection, site not specified; J18.9 Pneumonia, unspecified organism; C34.11 Malignant neoplasm of upper lobe, right bronchus or lung; E28.2 Polycystic ovarian syndrome; F41.9 Anxiety disorder, unspecified; F32.A Depression, unspecified; K21.9 Gastro-esophageal reflux disease without esophagitis; J84.10 Pulmonary fibrosis, unspecified; G47.00 Insomnia, unspecified; N13.30 Unspecified hydronephrosis; N13.4 Hydroureter; Z79.82 Long term (current) use of aspirin; Z79.84 Long term (current) use of oral hypoglycemic drugs; Z79.899 Other long term (current) drug therapy; Z79.2 Long term (current) use of antibiotics; Z87.891 Personal history of nicotine dependence

== ENCOUNTER → 2025-01-11 | Outpatient (CLI) | payer OTHER ==
[~2025-01-11] MED LIST changes: +DOCU100C16 PO; +ESTR0.5T3 PO; +LEVO75TAB PO; +METR-265 PO; +POLY17PO10 PO
== END ==
LOC: M ONCR 13:37
PROVIDERS: ATTEND General Practice
DX: C34.11 Malignant neoplasm of upper lobe, right bronchus or lung (principal); C77.1 Secondary and unspecified malignant neoplasm of intrathoracic lymph nodes; Z87.891 Personal history of nicotine dependence; Z92.21 Personal history of antineoplastic chemotherapy; Z92.3 Personal history of irradiation; Z79.620 Long term (current) use of immunosuppressive biologic; Z79.82 Long term (current) use of aspirin; Z79.84 Long term (current) use of oral hypoglycemic drugs; Z79.899 Other long term (current) drug therapy

== ENCOUNTER 2025-01-22 10:34 | Outpatient (RCR) | payer OTHER ==
[2025-01-22] MEDS ORDERED: LEVO1TAB40 PO (11:12)
[2025-01-22] MEDS ORDERED: PRED50TA PO (11:12)
== END 2025-02-04 ==
LOC: M ONCR 10:34
PROVIDERS: ATTEND General Practice
DX: Z51.0 Encounter for antineoplastic radiation therapy (principal); C34.11 Malignant neoplasm of upper lobe, right bronchus or lung

== ENCOUNTER 2025-02-12 12:49 | Outpatient (RCR) | payer OTHER ==
[~2025-02-12 12:49] MED LIST changes: -BUPR-597 PO; +BUPR-766 PO; +LEVO1TAB40 PO; -PRED50TA PO; +PRED50TA57 PO
== END 2025-03-06 ==
LOC: M ONCR 12:49
PROVIDERS: ATTEND General Practice
DX: Z51.0 Encounter for antineoplastic radiation therapy (principal); C34.11 Malignant neoplasm of upper lobe, right bronchus or lung

== ENCOUNTER → 2025-05-15 | Outpatient (CLI) | payer OTHER ==
[2025-05-15] MEDS: SODIUM CHLORIDE 0.9% INJ 10 ML SYR IV PRN (14:29)
== END ==
LOC: M ONCR 13:31
PROVIDERS: ATTEND General Practice
DX: C34.11 Malignant neoplasm of upper lobe, right bronchus or lung (principal); J84.10 Pulmonary fibrosis, unspecified; Z79.620 Long term (current) use of immunosuppressive biologic; Z79.82 Long term (current) use of aspirin; Z79.84 Long term (current) use of oral hypoglycemic drugs; Z79.899 Other long term (current) drug therapy; Z87.891 Personal history of nicotine dependence; Z92.21 Personal history of antineoplastic chemotherapy; Z92.3 Personal history of irradiation
CPT/HCPCS: G0463; J1642

== ENCOUNTER 2025-06-05 08:00 | Day surgery (SDC) | payer OTHER ==
[~2025-06-05] VITALS: Ht 160 cm; Wt 71.8 kg
[~2025-06-05 08:00] MED LIST changes: +ALBUTEROL SULFATE 2.5 MG/0.5 ML INH CONCENTRATE NEB SOLN INH ONE; +LIDOCAINE PRES-FREE 2% 10 ML AMP INH ONE; +PANT20TA6 PO; +PULM0.5S INH; +SENN-225 PO; -SENO8.6T5 PO
[2025-06-05] MEDS ORDERED: LR 1,000 ML IV SCH ×2 (08:05→10:45)
[2025-06-05] MEDS ORDERED: ROCURONIUM BROMIDE 50MG/5ML VIAL As Ordered ONE (08:19)
[2025-06-05] MEDS ORDERED: LIDOCAINE 2% 100 MG/5 ML SDV (FOR ANES.) As Ordered ONE (08:19)
[2025-06-05] MEDS ORDERED: MIDAZOLAM INJ 2 MG/2 ML VIAL As Ordered ONE (08:19)
[2025-06-05] MEDS ORDERED: SUGAMMADEX SODIUM 500 MG/5 ML VIAL As Ordered ONE (08:19)
[2025-06-05] MEDS ORDERED: ONDANSETRON 4MG 2ML VIAL As Ordered ONE (08:19)
[2025-06-05] MEDS ORDERED: dexAMETHasone 4 MG/ML 1 ML VIAL As Ordered ONE (08:19)
[2025-06-05] MEDS ORDERED: ACETAMINOPHEN 1000MG/100ML IV BAG As Ordered ONE (08:25)
[2025-06-05] MEDS: CETACAINE SPRAY 5 GM As Ordered ONE (10:20)
[2025-06-05] MEDS ORDERED: PHENYLephrine 500MCG 5ML (100MCG/ML) SYRINGE As Ordered ONE (10:28)
[2025-06-05] MEDS ORDERED: HYDROMORPHONE HCL 0.5 MG/0.5 ML SYRINGE IV PRN (10:45)
[2025-06-05] MEDS: EPINEPHrine 1 MG/10 ML SYRINGE 1.5IN As Ordered ONE (10:51)
[2025-06-05 12:10] VITALS: BP 121/59; TEMP 97.1; O2SAT 96
[2025-06-14] MEDS ORDERED: MELO15TA28 PO (13:09)
== END 2025-06-05 12:16 | disposition home or self-care (01) ==
LOC: M SDC 08:00
PROVIDERS: ATTEND Internal Medicine Critical Care Medicine
DX: C77.1 Secondary and unspecified malignant neoplasm of intrathoracic lymph nodes (principal); Z85.118 Personal history of other malignant neoplasm of bronchus and lung; J44.9 Chronic obstructive pulmonary disease, unspecified; I10 Essential (primary) hypertension; Z79.51 Long term (current) use of inhaled steroids; Z79.899 Other long term (current) drug therapy; Z79.82 Long term (current) use of aspirin; Z92.21 Personal history of antineoplastic chemotherapy; Z92.3 Personal history of irradiation; G62.9 Polyneuropathy, unspecified; F41.9 Anxiety disorder, unspecified; F32.A Depression, unspecified
CPT/HCPCS: 31624; 31652; 71045; 87070; 87102; 87116; 87205; 87206; 88173; 88305; J0131; J1100; J2250; J2371; J2405; J3010

== ENCOUNTER → 2025-06-14 | Outpatient (CLI) | payer OTHER ==
[~2025-06-14] MED LIST changes: -ALBUTEROL SULFATE 2.5 MG/0.5 ML INH CONCENTRATE NEB SOLN INH ONE; -LIDOCAINE PRES-FREE 2% 10 ML AMP INH ONE; +MELO15TA28 PO
== END ==
LOC: M ONCR 11:24
PROVIDERS: ATTEND General Practice
DX: C34.11 Malignant neoplasm of upper lobe, right bronchus or lung (principal); C77.1 Secondary and unspecified malignant neoplasm of intrathoracic lymph nodes; G62.0 Drug-induced polyneuropathy; T45.1X5A Adverse effect of antineoplastic and immunosuppressive drugs, initial encounter; J84.10 Pulmonary fibrosis, unspecified; Z79.620 Long term (current) use of immunosuppressive biologic; Z79.899 Other long term (current) drug therapy; Z87.891 Personal history of nicotine dependence; Z92.21 Personal history of antineoplastic chemotherapy; Z92.3 Personal history of irradiation

== ENCOUNTER 2025-06-20 10:58 | Outpatient (RCR) | payer OTHER ==
[2025-06-24] MEDS ORDERED: TORS20TA2 PO (12:01)
[2025-07-05] MEDS ORDERED: BENZ-18 PO (16:13)
[2025-07-10] MEDS ORDERED: AZIT-12 PO (13:34)
== END 2025-07-07 ==
LOC: M ONCR 10:58
PROVIDERS: ATTEND General Practice
DX: Z51.0 Encounter for antineoplastic radiation therapy (principal); C34.11 Malignant neoplasm of upper lobe, right bronchus or lung

== ENCOUNTER → 2025-07-03 | Outpatient (CLI) | payer OTHER ==
[~2025-07-03] MED LIST changes: +AZIT-12 PO; +BENZ-18 PO; +TORS20TA2 PO
[2025-07-03 10:51] VITALS: BP 120/86; TEMP 97.6; O2SAT 96
== END ==
LOC: M IRPRO 10:14
PROVIDERS: ATTEND General Practice
DX: C34.11 Malignant neoplasm of upper lobe, right bronchus or lung (principal)

== ENCOUNTER 2025-07-16 14:34 | Outpatient (RCR) | payer OTHER ==
[2025-07-24] MEDS ORDERED: MAGICMW SSP (13:58)
== END 2025-08-06 ==
LOC: M ONCR 14:34
PROVIDERS: ATTEND General Practice
DX: Z51.0 Encounter for antineoplastic radiation therapy (principal); C34.11 Malignant neoplasm of upper lobe, right bronchus or lung

== ENCOUNTER → 2025-07-29 | Outpatient (CLI) | payer OTHER ==
[~2025-07-29] MED LIST changes: +MAGICMW SSP
== END ==
LOC: M PLAIMG 12:04
PROVIDERS: ATTEND Internal Medicine Critical Care Medicine
DX: J84.10 Pulmonary fibrosis, unspecified (principal)

== ENCOUNTER → 2025-09-18 | Outpatient (CLI) | payer OTHER ==
[~2025-09-18] MED LIST changes: +IPRA0.00 NEB; +SUCR1TA PO
== END ==
LOC: M RAD 16:03
DX: R06.02 Shortness of breath (principal); C34.90 Malignant neoplasm of unspecified part of unspecified bronchus or lung

== ENCOUNTER → 2025-09-24 | Outpatient (CLI) | payer OTHER ==
[~2025-09-24] MED LIST changes: +ISOVUE-370 76% 100 ML VIAL As Ordered ONE
== END ==
LOC: M RAD 16:43
DX: C34.90 Malignant neoplasm of unspecified part of unspecified bronchus or lung (principal)
CPT/HCPCS: 71260; 74177; Q9967

== ENCOUNTER 2025-10-03 10:52 | Emergency (ER) | payer OTHER ==
[~2025-10-03] VITALS: Ht 160 cm; Wt 72.7 kg
[~2025-10-03 10:52] MED LIST changes: -ISOVUE-370 76% 100 ML VIAL As Ordered ONE
[2025-10-03] MEDS: SODIUM CHLORIDE 0.9% INJ 10 ML SYR IV SCH (11:20)
[2025-10-03] MEDS: HEPARIN LOCK FLUSH 100 UNITS/ML 3 ML SYRINGE IV ONE (11:20)
[2025-10-03 12:08] LABS: BASO # 0.0 10^3/uL (0.0-0.2); BASO % 0.4 % (0.0-1.0); EOS # 0.2 10^3/uL (0.0-0.5); EOS % 2.8 % (0.0-3.0); LYMPH # 0.7 10^3/uL (1.5-5.0); LYMPH % 10.5 % (24.0-44.0); MONO # 0.7 10^3/uL (0.0-0.8); MONO % 10.2 % (2.0-8.0); NEUTROPHILS # 5.2 10^3/uL (1.5-8.5); NEUTROPHILS % 75.8 % (36.0-66.0); PLATELET COUNT, AUTOMATED 319 10^3/uL (150-450)
[2025-10-03] MEDS ORDERED: ISOVUE-370 76% 100 ML VIAL As Ordered ONE (12:39)
[2025-10-03] MEDS: ONDANSETRON 4MG/2ML VIAL IV ONE (13:11)
[2025-10-03] MEDS: FAMOTIDINE 20 MG TAB PO ONE (13:11)
[2025-10-03] MEDS ORDERED: MELA3TAB78 PO (15:43)
[2025-10-03] MEDS ORDERED: HOME MED LIST COMPLETE! XX SCH (15:45)
[2025-10-03 16:25] LABS: ALT/SGPT 12 U/L (7.0-40); AST/SGOT 19 U/L (<34)
[2025-10-03] MEDS ORDERED: AMOX875T2 PO (16:51)
[2025-10-03 17:07] VITALS: BP 100/68; TEMP 97.7; O2SAT 98
[2025-10-03] MEDS: AUGMENTIN 875 MG TAB PO ONE (17:07)
[2025-10-03] MEDS ORDERED: ONDA-282 PO (17:10)
[2025-10-09] MEDS ORDERED: TORS20TA2 (13:55)
== END 2025-10-03 17:23 | disposition home or self-care (01) ==
LOC: M ED 10:52
DX: C34.90 Malignant neoplasm of unspecified part of unspecified bronchus or lung (principal); J90 Pleural effusion, not elsewhere classified; Z99.81 Dependence on supplemental oxygen; Z87.891 Personal history of nicotine dependence; Z79.82 Long term (current) use of aspirin; Z79.899 Other long term (current) drug therapy
CPT/HCPCS: 70491; 71045; 71275; 80047; 80076; 84145; 85025; 85652; 86140; 87040; 87486; 87581; 87633; 87798; 93005; 96374; 96375; 99284; J1642; J2405; Q9967

== ENCOUNTER → 2025-10-17 | Outpatient (CLI) | payer OTHER ==
[~2025-10-17] MED LIST changes: +MELA3TAB78 PO; +TORS20TA2
== END ==
LOC: M ONCR 15:30
PROVIDERS: ATTEND General Practice
DX: C34.11 Malignant neoplasm of upper lobe, right bronchus or lung (principal); Z79.82 Long term (current) use of aspirin; Z79.899 Other long term (current) drug therapy; Z92.3 Personal history of irradiation; Z99.81 Dependence on supplemental oxygen; J70.1 Chronic and other pulmonary manifestations due to radiation; W88.8XXA Exposure to other ionizing radiation, initial encounter; R93.89 Abnormal findings on diagnostic imaging of other specified body structures

== ENCOUNTER → 2025-10-29 | Outpatient (CLI) | payer OTHER | LOC: M ONCR 11:12 | PROVIDERS: ATTEND General Practice | DX: C34.11 Malignant neoplasm of upper lobe, right bronchus or lung (principal); C77.1 Secondary and unspecified malignant neoplasm of intrathoracic lymph nodes; J84.10 Pulmonary fibrosis, unspecified; Z79.620 Long term (current) use of immunosuppressive biologic; Z79.82 Long term (current) use of aspirin; Z79.899 Other long term (current) drug therapy; Z87.891 Personal history of nicotine dependence ==